=== PATIENT | male | born 1960 | race Caucasian/White ===

== ENCOUNTER 2017-12-10 06:33 | Inpatient (IN) | payer OTHER ==
[2017-11-29 09:36] LABS: ABSOLUTE EOSINOPHILS 0.2 thou/uL (0.0-0.7); ABSOLUTE LYMPHOCYTES 0.9 thou/uL (0.8-5.3); ABSOLUTE MONOCYTES 0.4 thou/uL (0.0-1.2); ABSOLUTE NEUTROPHILS 3.5 thou/uL (1.6-8.1); BASOPHILS 0.8 %; HEMOGLOBIN 15.1 gm/dL (14.0-18.0); LYMPHOCYTES 17.5 %; MCH 30.7 pg (26.0-34.0); MCHC 34.3 g/dL (28.0-37.0); MCV 89.6 fL (80.0-100.0); MONOCYTES 7.2 %; MPV 8.6 fl. (7.2-11.1); NUCLEATED RBCS 0 /100WBC; PLATELET COUNT* 144 thou/uL (150-400); POLYS 70.5 %; RBC 4.91 mil/uL (4.50-6.00); RDW-CV 13.9 % (10.5-14.5)
[2017-11-29 09:50] LABS: APTT 33.5 Seconds (25.0-31.3); INR 2.2; PROTIME 20.8 Seconds (9.20-11.50)
[2017-11-29 10:15] LABS: ALBUMIN 3.6 g/dL (3.4-5.0); CALCIUM 8.7 mg/dL (8.5-10.1); TOTAL BILIRUBIN 0.6 mg/dL (<0.1-1.0); TOTAL PROTEIN 6.4 g/dL (6.4-8.2)
[2017-11-29 10:19] LABS: POTASSIUM 2.9 mmol/L (3.5-5.1)
[2017-11-29 10:45] LABS: ESR (SEDRATE) 2 mm/hr (0-20)
--- NOTE | 2017-11-29 14:39 | NUR ---
RECEIVED CALL FROM [facility] AFTER DR. THOMPSON'S OFFICE CALLED TO DEFER TREATMENT TO DR. Sabine CHENEY ORDERING PHYSICIAN FOR K+--CRITICAL VALUE OF 2.9. LAB VALUES NOTING CRITICAL VALUE WAS FAXED TO DR Glynn CHENEY OFFICE AT 1250 TODAY. CALLED AT THIS TIME TO SPEAK WITH TRIAGE NURSE AT DR. Glynn CHENEY'S OFFICE TO NOTIFY OF CRITICAL VALUE RESULTS. SHE WILL ADDRESS WITH DR CHENEY.
[2017-11-30 02:07] LABS: GLYCOHEMOGLOBIN (HGB A1C) 7.5 % (4.8-5.6)
[~2017-12-10] VITALS: Ht 180.3 cm; Wt 122.0 kg
[~2017-12-10 06:33] MED LIST: ADULT LOW DOSE81 MG PO; AMLODIPINE-BEN1 EACH PO; ASPIRIN325; ASPIRIN325 PO; BAYER CHEWABLE81 MG PO; CALCIUM 600 +1 EAC1 PO; CATAPRESS3 TRANSDERM; COUMADIN 3 MG TA3 M1 PO; DOCUSATE SODIU100 MG PO; ENALAPRIL MALEAT5 M1 PO; FARXIGA10 MG PO; FISH OIL 1,0001 EAC5 PO; FISH OIL 1,2001 EAC3 PO; FUROSEMIDE 40 M40 M1 PO; GEMFIBROZIL 60600 MG PO; GLUCOPHAGE1000 MG PO; HYDRALAZINE 2525 M1 PO; HYDROCODONE-AP1 EAC6 PO; IRON325 PO; KLOR-CON 10 ER10 MEQ PO; LANTUSSOLASTAR SUBQ; LIPITOR 20 MG T20 M1 PO; LOPRESSOR 100 MG; LOPRESSOR100 MG PO; LYRICA 50 MG50 MG PO; MULTIVITAMINS1 EAC7 PO; NORCO 5-325 TA1 EACH; NORCO 5-325 TA1 EACH PO; NOVOLOG100 UNIT/1 SUBQ; POTASSIUM20 PO; PRAVACHOL80 MG PO; TEKTURNA300 MG PO; VITAMIN B COMP1 EACH PO; VITAMIN B-12100 MC1 PO; VITAMIN D1000 UNI1 PO; VITAMINC500 PO; XARELTO10 MG; [UNRECOGNIZED DRUG - OTHER] PO
[2017-12-10 12:21] LABS: INR 1.2; PROTIME 11.4 Seconds (9.20-11.50)
[2017-12-10 12:30] VITALS: BP 147/95
[2017-12-10 18:49] VITALS: BP 152/86
--- NOTE | 2017-12-10 18:58 | NUR ---
PATIENT ARRIVED TO UNIT AT 1825. ALERT AND ORIENTED X4. PAIN IS MANAGEABLE AT THIS TIME. RECIEVED IV NAUSEA MEDICATION AFTER ARRIVING TO UNIT. PATIENT HAS BEEN ORIENTED TO ROOM. IV IS PATENT AND INFUSING. CALL LIGHT IS WITHIN REACH. NURSING WILL CONTINUE TO MONITOR.
[2017-12-10 20:05] VITALS: BP 132/74
[2017-12-11 00:31] VITALS: BP 113/67
[2017-12-11 04:04] VITALS: BP 118/62
[2017-12-11 05:03] LABS: HEMATOCRIT 35.3 % (42.0-52.0); HEMOGLOBIN 12.7 gm/dL (14.0-18.0)
--- NOTE | 2017-12-11 05:21 | NUR ---
PATIENT ALERT AND ORIENTED. VITALS STABLE. ON 3L OF OXYGEN. FLUIDS INFUSING PER ORDER. PAIN CONTROLLED WITH PO MEDICATION. VOIDING PER URINAL. RIGHT HIP DRESSING C/D/I, ICEPACK IN PLACE. AT BEDSIDE. HOURLY ROUNDS. BED ALARM IN USE. NURSING WILL CONTINUE TO MONITOR.
[2017-12-11 09:00] VITALS: BP 122/62
[2017-12-11 09:16] LABS: INR 1.2; PROTIME 11.3 Seconds (9.20-11.50)
[2017-12-11 09:43] LABS: URINE BILIRUBIN NEGATIVE (Negative); URINE BLOOD NEGATIVE (Negative); URINE CLARITY CLEAR; URINE COLOR YELLOW; URINE GLUCOSE-RANDOM 3+ (Negative); URINE KETONES TRACE (Negative); URINE LEUKOCYTES-REFLEX NEGATIVE (Negative); URINE NITRITE-REFLEX NEGATIVE (Negative); URINE PROTEIN NEGATIVE (Negative); URINE SPECIFIC GRAVITY >= 1.030 (1.005-1.030); URINE UROBILINOGEN 0.2 E.U./dl (0.2-1.0)
[2017-12-11 16:10] VITALS: BP 128/67
--- NOTE | 2017-12-11 16:35 | NUR ---
PATIENT REMAINS ALERT AND ORIENTED. PAIN CONTROLLED WITH PO MEDS. DRESSING TO HIP DRY AND INTACT. ICE PACK IN PLACE. TEDS/SCD'S IN PLACE. WORKED WITH PT/OT. VOIDING PER TOILET. RA SAT 96%. TOLERATING MEALS. BED/CHAIR ALARM IN PLACE. CALL LIGHT WITHIN REACH. WILL CONTINUE TO MONITOR.
[2017-12-11 21:00] VITALS: BP 137/68
[2017-12-12] VITALS: BP 112/67
[2017-12-12 04:53] VITALS: BP 115/68
--- NOTE | 2017-12-12 05:22 | NUR ---
PATIENT ALERT AND ORIENTED. PAIN CONTROLLED WITH PO MEDICATION. UP WITH ASSIST X 2 TO BATHROOM. MOVES SLOW AND NEEDS NURSING ASSISTANCE TO HELP SCOOT LEG HE WALKS. PASSING FLATUS NO BOWEL MOVEMENT. HOURLY ROUNDS. UP IN RECLINER. CHAIR ALARM IN USE. NURSING WILL CONTINUE TO MONITOR.
[2017-12-12 06:56] LABS: HEMATOCRIT 35.6 % (42.0-52.0)
[2017-12-12 07:54] LABS: INR 1.1; PROTIME 10.7 Seconds (9.20-11.50)
[2017-12-12 08:34] VITALS: BP 128/68
--- NOTE | 2017-12-12 11:47 | NUR ---
SPOKE WITH PT.AND . PT.DROWSY,KEPT HIS EYES CLOSED. HE SAID HE WAS PLANNING ON GOING HOME TOMORROW. HE IS NORMALLY INDEPENDENT AT HOME. WORKS PACKAGING COORDINATOR. HAS A WALKER THAT IS IN ROOM. DID NOT HAVE TO USE PREOP. DISCUSSED HOME HEALTH VS OUTPT THERAPY. THEY WILL DECIDE TOMORROW. PT.WILL GO HOME ON LOVENOX/COUMADIN. PT.HAS BEEN SEEING IN OFFICE, BUT NOT RECENTLY. HE IS NOT SURE WHO WOULD MONITOR HIS COUMADIN. WILL DISCUSS WITH
[2017-12-12 16:08] VITALS: BP 122/62
--- NOTE | 2017-12-12 17:32 | NUR ---
ASSUMED CARE OF PATIENT AFTER MORNING REPORT. ALERT AND ORIENTED X4. ASSESSMENT COMPLETED AND CHARTED. VSS ON ROOM AIR. PATIENT HAS HAD NO COMPLAINTS OF NAUSEA THIS SHIFT. PAIN HAS BEEN MINIMAL AND MANAGED WT PAIN MEDICATION. PATIENT HAS WORKED WITH THERAPY TODAY AND IS PROGRESSING SLOWER THAN HE WOULD LIKE. HOURLY ROUNDS HAVE BEEN MAINTAINED. CALL LIGHT IS WITHIN REACH. NURSING WILL CONTINUE TO MONITOR.
[2017-12-12 20:50] VITALS: BP 137/69
[2017-12-13 00:18] VITALS: BP 113/69
[2017-12-13 04:00] VITALS: BP 133/69
--- NOTE | 2017-12-13 05:21 | NUR ---
PATIENT ALERT AND ORIENTED. VITALS STABLE. LOW GRADE FEVER OVERNIGHT. UP WITH ASSIST X 2 TO BATHROOM. PATIENT IS MOVING BETTER TODAY. RIGHT HIP CIRO DRESSING IN PLACE. HOURLY ROUNDS. CHAIR ALARM IN USE. NURSING WILL CONTINUE TO MONITOR.
[2017-12-13 07:55] VITALS: BP 136/69
[2017-12-13 11:15] LABS: INR 1.1; PROTIME 10.7 Seconds (9.20-11.50)
--- NOTE | 2017-12-13 12:59 | S ---
[address] [address] SURGICAL PATH RPT PROCEDURE Name: FRANK STANLEY Room: [address] IN ..#: [id number] Admission: 12/10/17 Date of : 62 Discharge: Report #: [id number] Path Case #: [id number] PATHOLOGY REPORT COLLECTION DATE: 12/11/2017 RECEIVED DATE: 12/11/2017 SUBMITTING PHYS: Dr. Jeremy Kahn OTHER PHYS: Dr. Usama Agarwal SPECIMEN(S) RECEIVED: A.Right hip bone and tissue * * * * * * * * * * * * FINAL DIAGNOSIS: Right hip bone and tissue: - Benign dense fibrous connective tissue and benign femoral head including hematopoietic elements with severe degenerative changes. (ROANL:db; 12/13/2017) PATHOLOGIST: Harvinder Alaniz M.D. REPORT ELECTRONICALLY SIGNED BY: Harvinder Alaniz M.D. DATE/TIME: 12/13/2017 12:59 * * * * * * * * * * * * GROSS PATHOLOGY: Received in formalin labeled "Frank Stanley, right hip bone and tissue," is a femoral head measuring 5.6 x 5.0 x 3.7 cm in greatest dimensions admixed with soft tissue. The articular surface is smooth to granular and pale jeter to dark brown in appearance, with no gross evidence of eburnation. Sectioning the bone reveals pale yellow and slightly hemorrhagic cut surfaces. It Support Engineer tissue is submitted in cassette A1, following decalcification. (DAC; 12/12/2017) CLINICAL HISTORY: Right hip degenerative joint disease INITIAL CPT CODE(S): A; 31074, 54886 Professional services performed by [facility] at [facility], [address] [place], [place] [address] [address]. Technical services performed by [facility] at [address] [place] [address], [facility] [address], [place] [address]. [place] [address] SURGICAL PATH RPT PROCEDURE Name: FRANK STANLEY Room: [address] IN [facility].#: [id number] Admission: 12/10/17 Date of : 62 Discharge: Report #: [id number] Path Case #: [id number] [facility] [address] [address] PHONE: [phone] DIRECTOR: Sumeet Davidson M.D. * * * END OF REPORT * * *
[2017-12-13 14:39] VITALS: BP 136/69
[2017-12-13 15:40] VITALS: BP 136/69
[2017-12-13] MEDS ORDERED: ENOXAPARIN30 MG/0.1 SUBQ (16:10)
--- NOTE | 2017-12-13 16:28 | NUR ---
PT.DOING WELL ENOUGH WITH P.T. TO BE DISCHARGED HOME TODAY. REFUSES TO MONITOR PT/INRS. LEFT MESSAGE FOR 'S (PCP)NURSE TO SEE IF HE WOULD MONITOR PT.'S INR. PER YENNIFER, WILL MONITOR INR/LOVENOX/COUMADIN. FAXED ORDER TO [facility]-[phone]. FAXED ALL ORDERS TO [facility]. THEY DO TAKE PT.'S INSURANCE. CALLED IN LOVENOX 30MG SYRINGES #14 TO PT.'S PHARMACY.
--- NOTE | 2017-12-13 17:58 | NUR ---
ASSUMED CARE OF PATIENT AFTER MORNING REPORT. ALERT AND ORIENTED X4. ASSESSMENT COMPLETED AND CHARTED. VSS ON ROOM AIR. PATIENT HAS HAD NO COMLAINTS OF NAUSEA THIS SHIFT. PAIN HAS BEEN MINIMAL AND MANAGED WITH PAIN MEDICATION. PATIENT WORKED WLL WITH THERAPY TODAY. PATIENTS CHEST PORT WAS FLUSHED WITH HEPARIN AND DEACCESSED. DICHARGED AT 1745 WITH HIS . ALL PERSONAL BELONGINGS SENT WITH PATIENT. DISCHARGE INSTRUCTIONS AND PRESCRIPTION SENT WITH PATIENT UPON DISCHARGE.
--- NOTE | 2017-12-17 09:23 | OP ---
[address] [address] OPERATIVE REPORT Name: FRANK BOWER Room: [address]#: [id number] Admission: 12/10/17 Attend Phys: Maxwell Hess Discharge: 12/13/17 Date of : 62 Report #: [id number] THIS REPORT FOR: //name// CC: Uriel Tsang DICTATED BY: Roberto Carlos Moser DO PREOPERATIVE DIAGNOSIS: Advanced degenerative joint disease, right hip. POSTOPERATIVE DIAGNOSIS: Advanced degenerative joint disease, right hip. SURGEON: Jeremy Kahn DO CAN WORKER: Roberto Carlos Moser DO OPERATION PERFORMED: Right total hip arthroplasty. ANESTHESIA: General with local capsular block. ESTIMATED BLOOD LOSS: 300 mL SPECIMENS: None. COMPLICATIONS: None. ANTIBIOTICS: Vancomycin preoperatively as well as 2 grams used intraoperatively. INDICATIONS FOR PROCEDURE: The patient is a 57-year-old male that has been seen multiple times in our clinic regarding his right hip pain. Unfortunately, he is no longer responding to conservative treatment including activity modification, weight loss, anti-inflammatories and therapy. His pain is significantly affecting his quality of life and ability to perform ADLs. He presents today for right total hip arthroplasty. Risks, benefits, complications and alternatives of surgery have been reviewed discussed with him and he is wishing to proceed. DESCRIPTION OF PROCEDURE: The patient was taken to the OR suite, placed supine on OR table, was given the benefit of general anesthetic. He was then prepped and draped in the usual sterile fashion. Prior to the procedure, a time-out was taken confirming correct site, patient and procedure. The procedure began making an anterolateral incision over the right hip and tensor fascia mallory muscle, was approximately 2 cm distal and lateral to the ASIS. Dissection was carried down through skin and subcutaneous tissues to the level of the tensor fascia. This was incised longitudinally. [place] [address] OPERATIVE REPORT Name: FRANK BOWER Room: [address]#: [id number] Admission: 12/10/17 Attend Phys: Maxwell Hess Discharge: 12/13/17 Date of : 62 Report #: [id number] muscle and the sartorius was developed. Dissection was carried down to the level of the deep fascia where the circumflex vessels were encountered. These were cauterized with Aquamantys. The hip capsule was exposed and appropriate retractors were placed. A partial capsulotomy was performed exposing the hip joint. There was a significant amount of osteophytes on the femoral head and neck as well as diffuse to advanced arthritic changes with chondral loss on the head of the femur. A neck cut was then performed referencing the lesser trochanter. This was approximately 1 fingerbreadth above the lesser for a neck cut. Oscillating saw was used to perform this. Femoral head and neck were then removed. Excess osteophytes and remaining labrum was removed around the acetabulum. Reaming was done sequentially up to a size 55. This was done utilizing a C-arm to confirm alignment and positioning of our acetabulum. The acetabulum was thoroughly irrigated and our final cup was placed as well as 2 screws within the acetabulum. Positioning and version was checked once again on C-arm. We then placed our trial liner with the high wall facing anterior and superior. We then directed our attention to the femur. The leg was brought into maximal external rotation to allow the femoral neck to clear the acetabulum. The leg was then extended to the floor and abducted. This allowed us to expose our femoral canal. Box osteotome and rattail rasp were used to access the femoral canal. We then sequentially broached up to a size 15 stem. This was trialled initially with a -3 neck and a size 40 head. C-arm was brought in to check our alignment. Stem was in appropriate position and a good fit. We were slightly short with the -3 neck; therefore, we elected for a standard final. Femoral stem was removed from the canal and the wound was once again thoroughly irrigated. We placed a vancomycin powder. The final stem was placed within the canal and well seated. A standard length, 40 mm head was then placed and this was reduced. C-arm was brought in for final images. Wound was again thoroughly irrigated. Topical TXA was utilized. Local capsular block was performed. The tensor fascia was reapproximated with a Quill suture, 2-0 Monocryl for subcutaneous tissues with a running 3-0 Stratafix. Sterile dressings were applied. The patient tolerated procedure well. All sponge, needle counts were correct x 2. IMPLANTS: Biomet G7 thinned acetabular shell size 56, a G7 high wall E1 acetabular liner, a Biolox delta hip system, ceramic head size 40, a 15 mm high offset Taperloc complete femoral stem with a standard neck, 2 G7 acetabular screws, one 25 mm, one 30 in length. <ELECTRONICALLY SIGNED> By: Jeremy Kahn DO 12/17/17 0923 1745 1857Robmegan Kahn DO /nt
== END 2017-12-13 17:45 | disposition home health service (06) | DRG 470 ==
LOC: M.PRE 06:33 → M.TBA 11:48 → M.ORTHSURG 11:48 → M.PRE 12:41 → M.ORTHSURG 18:18 → M.PRE 10-10 14:49
PROVIDERS: Internal Medicine; Orthopaedic Surgery; ADMIT Internal Medicine
PROC: 0SR903Z Replacement of Right Hip Joint with Ceramic Synthetic Substitute, Open Approach (ICD-10-PCS; principal; 2017-12-10)
DX: M16.11 Unilateral primary osteoarthritis, right hip (principal); D68.59 Other primary thrombophilia; Z96.652 Presence of left artificial knee joint; I10 Essential (primary) hypertension; E78.5 Hyperlipidemia, unspecified; T45.515A Adverse effect of anticoagulants, initial encounter; E11.9 Type 2 diabetes mellitus without complications; Z85.05 Personal history of malignant neoplasm of liver; Z80.1 Family history of malignant neoplasm of trachea, bronchus and lung; Z80.3 Family history of malignant neoplasm of breast; Z85.038 Personal history of other malignant neoplasm of large intestine; Z86.711 Personal history of pulmonary embolism; Z79.4 Long term (current) use of insulin; Z79.899 Other long term (current) drug therapy

== ENCOUNTER → 2018-05-23 | Outpatient (CLI) | payer OTHER ==
[~2018-05-23] MED LIST changes: +AMLODIPINE BESY10 MG PO; +ENOXAPARIN30 MG/0.1 SUBQ; +XULTOPHY 100 UNI3 ML
--- NOTE | 2018-09-20 09:08 | PATH ---
[address] [address] PATHOLOGY RPT PROCEDURE Name: FRANK BOWER Laurie Room: [facility]#: [id number] Admission: 05/23/18 Date of : 62 Discharge: Report #: [id number] Path Case #: [id number] Note [facility] Accession Number: [id number] TESTS RESULT FLAG UNITS REF RANGE LAB Clinician Provided Cytology Information No. of containers..01 Other (Miscellaneous) Source: [A] 01 LG PAROTID NECK MASS DIAGNOSIS: [A] 02 LG PAROTID NECK MASS POSITIVE FOR MALIGNANT CELLS. POORLY DIFFERENTIATED NON SMALL CELL CARCINOMA, FAVOR SQUAMOUS CELL CARCINOMA. THIS INTERPRETATION INCLUDES EVALUATION OF A CELL BLOCK. Signed out by: 02 Kofi Godinez MD, Pathologist NPI- [id number] Performed by: 01 Brodie Dickerson, Grey Roll Worker ([facility]) Gross description: 01 20 ML, RED, CLEAR /LCS FLAG LEGEND: L-Low Normal,H-High Normal,LL-Alert Low,HH-Alert High <-Panic Low,>-Panic High,A-Abnormal,AA-Critical Abnormal Performed at: [address] [address] Frank Ruggiero MD, [address] [place] [id number] Sumeet Davidson MD, Specimen Comment: A duplicate report has been generated due to demographic updates. Performed at: [address] [address], [place], [place] [id number] MD Frank Ruggiero MD Phone: [phone]
--- NOTE | 2018-09-20 09:08 | PATH ---
[address] [address] PATHOLOGY RPT PROCEDURE Name: FRANK BOWER Room: [facility]#: [id number] Admission: 05/23/18 Date of : 62 Discharge: Report #: [id number] Path Case #: [id number] Note [facility] Accession Number: [id number] TESTS RESULT FLAG UNITS REF RANGE LAB Clinician Provided Cytology Information No. of containers..01 Other (Miscellaneous) Source: [A] 01 SM LT PAROTID MASS DIAGNOSIS: [A] 02 SM LT PAROTID MASS POSITIVE FOR MALIGNANT CELLS. POORLY DIFFERENTIATED CARCINOMA, FAVOR SQUAMOUS CELL CARCINOMA. THIS INTERPRETATION INCLUDES EVALUATION OF A CELL BLOCK. THE FINDINGS OF THIS CASE AND CASE [id number] CROOKS ON 05/24/18. Signed out by: 02 Kofi Godinez MD, Pathologist NPI- [id number] Performed by: 01 Brodie Dickerson, Director Of Retail ([facility]) Gross description: 01 30 ML, CLEAR, COLORLESS /LCS FLAG LEGEND: L-Low Normal,H-High Normal,LL-Alert Low,HH-Alert High <-Panic Low,>-Panic High,A-Abnormal,AA-Critical Abnormal Performed at: [address] [address] Frank Ruggiero MD, [address] [place] [id number] Sumeet Davidson MD, Specimen Comment: A duplicate report has been generated due to demographic updates. Performed at: [address] [place] [id number] MD Frank Ruggiero MD Phone: [phone]
== END | disposition home or self-care (01) ==
LOC: M.ULTRA 07:51
DX: C08.9 Malignant neoplasm of major salivary gland, unspecified (principal); Z79.82 Long term (current) use of aspirin; Z79.899 Other long term (current) drug therapy

== ENCOUNTER 2018-08-22 22:14 | Observation (INO) | payer OTHER ==
[~2018-08-22] VITALS: Ht 180.3 cm; Wt 98.0 kg
[~2018-08-22 22:14] MED LIST changes: -AMLODIPINE BESY10 MG PO; -XULTOPHY 100 UNI3 ML
[2018-08-22 22:34] VITALS: BP 133/88
[2018-08-22] MEDS ORDERED: AMLODIPINE BESY10 MG PO (22:40)
[2018-08-22] MEDS ORDERED: XULTOPHY 100 UNI3 ML (22:41)
[2018-08-22 22:47] LABS: HEMATOCRIT 42.9 % (42.0-52.0); HEMOGLOBIN 14.7 gm/dL (14.0-18.0); MCH 30.1 pg (26.0-34.0); MCHC 34.3 g/dL (28.0-37.0); MCV 87.9 fL (80.0-100.0); MPV 7.9 fl. (7.2-11.1); NUCLEATED RBCS 0 /100WBC; PLATELET COUNT* 148 thou/uL (150-400); RBC 4.88 mil/uL (4.50-6.00); RDW-CV 14.4 % (10.5-14.5)
[2018-08-22 22:56] LABS: CALCIUM 9.1 mg/dL (8.5-10.1); POTASSIUM 3.6 mmol/L (3.5-5.1)
[2018-08-22 22:59] LABS: URINE CLARITY TURBID; URINE COLOR RED
[2018-08-22 23:00] LABS: ALBUMIN 3.5 g/dL (3.4-5.0); TOTAL BILIRUBIN 0.7 mg/dL (<0.1-1.0); TOTAL PROTEIN 6.6 g/dL (6.4-8.2)
[2018-08-22 23:01] LABS: APTT 73.4 Seconds (25.0-31.3); PROTIME 77.5 Seconds (9.20-11.50)
[2018-08-22 23:04] LABS: URINE GLUCOSE-RANDOM ND (Negative); URINE PROTEIN ND (Negative); URINE REDUCING SUBSTANCE >= 2 % (Negative); URINE SPECIFIC GRAVITY ND (1.005-1.030)
[2018-08-22 23:05] LABS: ACETEST (KETONE CONFIRMATORY) Negative (Negative); ICTOTEST (BILI CONFIRMATORY) Negative (Negative); URINE BILIRUBIN ND (Negative); URINE BLOOD ND (Negative); URINE KETONES ND (Negative); URINE LEUKOCYTES-REFLEX ND (Negative); URINE NITRITE-REFLEX ND (Negative); URINE UROBILINOGEN ND E.U./dl (0.2-1.0)
[2018-08-22 23:07] LABS: CASTS None Seen /LPF (None Seen); CRYSTALS None Seen /LPF (None Seen); MUCUS 0-3 Light strn/LPF (None Seen); SQUAMOUS 0-3 Few /LPF (0-3); URINE RBC >20 Many /HPF (0-2); URINE WBC-REFLEX None Seen /HPF (0-5)
[2018-08-22 23:09] LABS: INR 7.7
[2018-08-23 00:22] VITALS: BP 133/88
[2018-08-23 02:07] VITALS: BP 123/69; BP 125/69
[2018-08-23 02:21] LABS: ABSOLUTE EOSINOPHILS 0.2 thou/uL (0.0-0.7); ABSOLUTE LYMPHOCYTES 0.8 thou/uL (0.8-5.3); ABSOLUTE MONOCYTES 0.8 thou/uL (0.0-1.2); ABSOLUTE NEUTROPHILS 4.2 thou/uL (1.6-8.1); ANISOCYTOSIS Occasional; PLATELET ESTIMATE DECREASED
[2018-08-23 02:22] LABS: TOXIC GRANULATION 1+
[2018-08-23 04:12] VITALS: BP 125/69
[2018-08-23 06:08] LABS: PROTIME 39.8 Seconds (9.20-11.50)
[2018-08-23 06:09] LABS: INR 3.9
[2018-08-23 09:54] VITALS: BP 129/75
[2018-08-23 11:46] VITALS: BP 129/75
== END 2018-08-23 12:05 | disposition home or self-care (01) ==
LOC: M.ERS 22:14 → M.TBA-ER 23:54 → M.ORTHSURG 23:54
PROVIDERS: Personal Emergency Response Attendant; ADMIT Internal Medicine
DX: R31.0 Gross hematuria (principal); D68.59 Other primary thrombophilia; R79.1 Abnormal coagulation profile; I10 Essential (primary) hypertension; E11.9 Type 2 diabetes mellitus without complications; C79.89 Secondary malignant neoplasm of other specified sites; Z87.891 Personal history of nicotine dependence; Z98.890 Other specified postprocedural states; Z85.038 Personal history of other malignant neoplasm of large intestine; Z85.05 Personal history of malignant neoplasm of liver; Z90.49 Acquired absence of other specified parts of digestive tract; Z72.89 Other problems related to lifestyle; Z85.828 Personal history of other malignant neoplasm of skin; Z79.4 Long term (current) use of insulin; Z79.82 Long term (current) use of aspirin; Z79.899 Other long term (current) drug therapy; Z79.01 Long term (current) use of anticoagulants

== ENCOUNTER → 2019-06-25 | Outpatient (CLI) | payer OTHER ==
[~2019-06-25] MED LIST changes: +AMLODIPINE BESY10 MG PO; +XULTOPHY 100 UNI3 ML
== END ==
LOC: M.MRI 06-13 16:10
DX: M17.11 Unilateral primary osteoarthritis, right knee (principal); M25.462 Effusion, left knee; M25.461 Effusion, right knee; M89.9 Disorder of bone, unspecified; Z96.641 Presence of right artificial hip joint

== ENCOUNTER 2019-10-02 05:48 | Inpatient (IN) | payer OTHER ==
[2019-09-11 09:10] LABS: HEMOGLOBIN 15.2 gm/dL (14.0-18.0)
[2019-09-11 09:12] LABS: ABSOLUTE EOSINOPHILS 0.1 thou/uL (0.0-0.7); ABSOLUTE LYMPHOCYTES 0.6 thou/uL (0.8-5.3); ABSOLUTE MONOCYTES 0.3 thou/uL (0.0-1.2); BASOPHILS 0.9 %; EOSINOPHILS 3.1 %; HEMATOCRIT 43.3 % (42.0-52.0); LYMPHOCYTES 14.8 %; MCH 31.7 pg (26.0-34.0); MCHC 35.2 g/dL (28.0-37.0); MCV 90.3 fL (80.0-100.0); MONOCYTES 6.9 %; MPV 7.7 fl. (7.2-11.1); NUCLEATED RBCS 0 /100WBC; PLATELET COUNT* 142 thou/uL (150-400); POLYS 74.3 %; RDW-CV 13.7 % (10.5-14.5)
[2019-09-11 09:23] LABS: APTT 38.7 Seconds (25.0-31.3); INR 3.2; PROTIME 31.2 Seconds (9.20-11.50)
[2019-09-11 09:31] LABS: ALBUMIN 3.7 g/dL (3.4-5.0); CALCIUM 9.2 mg/dL (8.5-10.1); CREATININE 1.1 mg/dL (0.6-1.3); POTASSIUM 3.4 mmol/L (3.5-5.1); TOTAL BILIRUBIN 0.4 mg/dL (<0.1-1.0); TOTAL PROTEIN 6.7 g/dL (6.4-8.2)
[2019-09-11 10:48] LABS: ESR (SEDRATE) 6 mm/hr (0-20)
--- NOTE | 2019-09-11 16:59 | EKG ---
[place] [address] ELECTROCARDIOGRAM REPORT Name: FRANK BOWER Room: PRE IN [facility]#: [id number] Admission: Attend Phys: Maxwell Hess Discharge: Date of : 62 Report #: [id number] THIS REPORT FOR: //name// [facility] Test Date: 2019-09-11 Test Time: 09:31:29 Pat Name: FRANK BOWER Department: Room: Gender: M Material Preparation Worker: : 1960 Requested By: Jeremy Kahn Order Number: [id number] Reading MD: Benson East Measurements Intervals [place] Rate: 82 P: 30 ID: 167 QRS: 17 QRSD: 103 T: 4 QT: 349 QTc: 408 Interpretive Statements Sinus rhythm Compared to ECG 08/18/2014 11:36:44 Myocardial infarct finding no longer present Electronically Signed On 09-11-2019 16:59:13 CDT by Benson East [email or web address] <ELECTRONICALLY SIGNED> By: Benson East MD, [facility] 09/11/19 1659 0931 0931 Benson East MD, FACC /EPI
[2019-09-11 23:06] LABS: GLYCOHEMOGLOBIN (HGB A1C) 6.9 % (4.8-5.6)
[~2019-10-02] VITALS: Ht 180.3 cm; Wt 112.5 kg
--- NOTE | ~2019-10-02 | OP ---
[facility] [address] [place] [address] OPERATIVE REPORT Name: FRANK BOWER Room: [address] IN .R.#: [id number] Admission: 10/02/19 Attend Phys: Maxwell eHss Discharge: 10/03/19 Date of : 62 Report #: [id number] THIS REPORT FOR: //name// CC: Jeremy Tsang DICTATED BY: Collin Bowers DO DATE OF SERVICE: 10/02/2019 PREOPERATIVE DIAGNOSIS: Advanced degenerative joint disease, left hip. POSTOPERATIVE DIAGNOSIS: Advanced degenerative joint disease, left hip. PROCEDURES PERFORMED: Left total hip arthroplasty using the Biomet system with the following components. 1. A 56 mm G7 finned acetabular shell. 2. A 40 mm G7 high wall acetabular liner. 3. A 6.5 self-tapping bone screw lengths 25 and 30. 4. A size 15 Taperloc microplasty stem with high offset. 5. A size 40 mm ceramic head. 6. A +3 mm taper adaptor neck. SURGEON: Jeremy Kahn DO SAUSAGE STUFFER: Collin Bowers DO ANESTHESIA: General with local. ESTIMATED BLOOD LOSS: 300 mL. SPECIMENS: None. COMPLICATIONS: None. DISPOSITION: Stable to PACU. ANTIBIOTICS: 2 grams of IV Ancef given preoperatively. INDICATIONS: The patient is a 59-year-old male who we follow up in the clinic for quite some time regarding left hip pain. Exam findings and radiographs are consistent with DJD. He has a history of right total hip, which he did very well with. He continues to have pain on the left that affects him on a daily basis. It is interfering with his ADLs. Therefore, a total hip arthroplasty was discussed. He agrees to proceed and understands the risks, benefits and [address] [address] OPERATIVE REPORT Name: FRANK BOWER Room: [address]#: [id number] Admission: 10/02/19 Attend Phys: Maxwell Hess Discharge: 10/03/19 Date of : 62 Report #: [id number] alternatives. DESCRIPTION OF PROCEDURE: The patient was seen in the preoperative area and signed written consent. The operative site was marked. He was brought back to the operative suite and placed supine on the [place] table. He was given the benefit of general anesthesia. Both legs were well padded and placed in the boot and into the spars. The left lower extremity was prepped and draped in normal sterile fashion. A surgical timeout was performed where the correct side, site and procedure were verified. Also, note that the perineal post was well padded. A surgical timeout was performed where the correct side, site, and procedure were verified. Everyone present was in agreement. The standard incision was made for the anterior approach measuring approximately 1 cm inferior and lateral to the ASIS. Sharp dissection was taken through the skin. Then, Bovie dissection was taken down to the level of the tensor fascia. A new knife was used to make an incision through this and the remainder was incised with scissor. We then identified the interval between the tensor and the sartorius. The branches of the circumflex were identified and coagulated using Aquamantys and the Bovie electrocautery. We identified the capsular tissue. The #7 retractor was placed in the superior neck, the #6 retractor placed inferiorly. A Pruett was used to create a plane superficial to the capsular tissue anteriorly and a #9 retractor was placed. An anterior capsulectomy was performed. He had a normal appearing joint effusion with eburnation of bone and osteophyte formation noted. The superior release was performed in order to identify the capsule. The femoral neck was cut approximately 1 cm proximal to the lesser trochanter. A napkin ring cut was made at the base of the head. The bone was removed. Then, the Bovie was used to remove the remaining capsular tissue as well as the labral tissue. We began reaming at a 53 and sequentially reamed and then reamed to a 55. This was done under fluoroscopy to ensure appropriate position and depth. We then impacted a 56 mm acetabular shell into place, which was again done under fluoroscopy to ensure appropriate inclination and anteversion. The appropriate holes were drilled ensuring to remain in the posterior superior quadrant and a 25 and 30 mm screws were inserted. The acetabular shell was thoroughly irrigated. The high wall liner was inserted with the high wall in the superior position. We then turned our attention to the femur. The 5 and 8 retractors were placed in the appropriate position. An inferior capsular release was performed. We then dropped the leg into extension and adduction. A posterior capsular release was performed until we had adequate visualization to prepare the femoral canal. We began with a box osteotome and then used the Rat tail rasp to localize the canal. We sequentially broached beginning at a 4 and up to a size 15, which had good fit. We used a standard neck with a high offset and the hip was reduced. X-rays were obtained. The stem appeared to be the appropriate size. The leg length was slightly short. We therefore dislocated the hip and trialed a +3 neck. This gave us the appropriate leg length. The hip was taken through a range of motion and found to be stable in all planes. The hip was dislocated, extended and adducted. The trial components were removed. The final components were opened. The final [address] [address] OPERATIVE REPORT Name: FRANK BOWER FRANCO Room: [address] IN [facility].#: [id number] Admission: 10/02/19 Attend Phys: Maxwell Hess Discharge: 10/03/19 Date of : 62 Report #: [id number] femoral stem was opened and impacted into place. This was noted to be sitting in the same position as the trial. We therefore then decided to impact the +3 neck with a 40 mm ceramic head. After the final components were impacted, the hip was reduced. Final x-rays were obtained showing appropriate positioning and length. The tissue was thoroughly irrigated. The orthopedic cocktail was injected around the capsular tissue. The tensor fascia was closed with a #1 running Stratafix. The wound was again thoroughly irrigated. The subcutaneous tissue was closed with a 2-0 Monocryl and reinforced with a 3-0 Stratafix and Exofin skin glue. A sterile Mepilex was applied. The patient was awoken from anesthesia and transferred to PACU in stable condition. There were no obvious complications. Needle and sponge counts were correct x 2. Dr. Kahn was present for all critical aspects of the case. By: 1637 1951Robert Migel Kahn DO /rosalinda
[~2019-10-02 05:48] MED LIST changes: +ASA81BEC PO; +HUMALOG100 UNIT/1 SUBQ; +TOPROL XL100 MG PO; -XULTOPHY 100 UNI3 ML; +XULTOPHY 100 UNI3 ML SUBQ
[2019-10-02] MEDS ORDERED: NORVASC10 MG PO (06:34)
[2019-10-02] MEDS ORDERED: COUMADIN 5 MG TA5 M1 PO (06:36)
[2019-10-02] MEDS ORDERED: JARDIANCE10 MG PO (06:37)
[2019-10-02] MEDS ORDERED: HUMALOG100 UNIT/1 SUBQ (06:37)
[2019-10-02] MEDS ORDERED: SOLIQUA 100 UNIT3 ML SUBQ (06:38)
[2019-10-02 06:47] LABS: INR 1.1
[2019-10-02 07:22] VITALS: BP 133/75
[2019-10-02 20:40] VITALS: BP 122/69
[2019-10-02 22:52] VITALS: BP 119/68
[2019-10-03 03:58] VITALS: BP 116/63
[2019-10-03 04:26] LABS: HEMATOCRIT 34.5 % (42.0-52.0); HEMOGLOBIN 11.9 gm/dL (14.0-18.0)
[2019-10-03 10:01] VITALS: BP 116/63
[2019-10-03 11:48] LABS: INR 1.2; PROTIME 11.9 Seconds (9.20-11.50)
[2019-10-03 13:56] VITALS: BP 116/63
[2019-10-03] MEDS ORDERED: ROXICODONE5 M2 PO (14:18)
[2019-10-03] MEDS ORDERED: TRAMADOL 50 MG50 MG PO (14:19)
[2019-10-03] MEDS ORDERED: LOVENOX40 MG/0.4 SUBQ (15:08)
== END 2019-10-03 15:34 | disposition home health service (06) | DRG 470 ==
LOC: M.PRE 05:48 → M.TBA 06:03 → M.PRE 09:37 → M.ORTHSURG 12:33
PROVIDERS: Internal Medicine; Orthopaedic Surgery; ADMIT Internal Medicine
PROC: 0SRB03Z Replacement of Left Hip Joint with Ceramic Synthetic Substitute, Open Approach (ICD-10-PCS; principal; 2019-10-02)
DX: M16.12 Unilateral primary osteoarthritis, left hip (principal); C78.7 Secondary malignant neoplasm of liver and intrahepatic bile duct; I10 Essential (primary) hypertension; E11.9 Type 2 diabetes mellitus without complications; Z96.652 Presence of left artificial knee joint; Z96.641 Presence of right artificial hip joint; E66.9 Obesity, unspecified; G47.33 Obstructive sleep apnea (adult) (pediatric); Z85.038 Personal history of other malignant neoplasm of large intestine; Z79.899 Other long term (current) drug therapy; Z79.82 Long term (current) use of aspirin; Z79.4 Long term (current) use of insulin; Z85.828 Personal history of other malignant neoplasm of skin; Z86.711 Personal history of pulmonary embolism; Z80.1 Family history of malignant neoplasm of trachea, bronchus and lung; Z80.3 Family history of malignant neoplasm of breast; Z87.891 Personal history of nicotine dependence; Z68.34 Body mass index [BMI] 34.0-34.9, adult

== ENCOUNTER 2019-10-12 21:40 | Inpatient (IN) | payer OTHER ==
[~2019-10-12] VITALS: Ht 180.3 cm; Wt 127.9 kg
[~2019-10-12 21:40] MED LIST changes: +COUMADIN 5 MG TA5 M1 PO; +JARDIANCE10 MG PO; +LOVENOX40 MG/0.4 SUBQ; +NORVASC10 MG PO; +ROXICODONE5 M2 PO; +SOLIQUA 100 UNIT3 ML SUBQ; +TRAMADOL 50 MG50 MG PO
[2019-10-12 21:50] VITALS: BP 140/62
[2019-10-12 22:52] LABS: HEMATOCRIT 32.7 % (42.0-52.0); HEMOGLOBIN 11.5 gm/dL (14.0-18.0); MCH 31.1 pg (26.0-34.0); MCHC 35.2 g/dL (28.0-37.0); MCV 88.4 fL (80.0-100.0); MPV 7.2 fl. (7.2-11.1); NUCLEATED RBCS 0 /100WBC; PLATELET COUNT* 303 thou/uL (150-400); RBC 3.69 mil/uL (4.50-6.00); RDW-CV 13.7 % (10.5-14.5); WBC 9.8 thou/uL (4.0-11.0)
[2019-10-12 23:02] LABS: POTASSIUM 3.8 mmol/L (3.5-5.1)
[2019-10-12 23:06] LABS: APTT 47.1 Seconds (25.0-31.3); INR 2.5; PROTIME 24.6 Seconds (9.20-11.50)
[2019-10-12 23:12] LABS: ALBUMIN 2.7 g/dL (3.4-5.0); TOTAL BILIRUBIN 0.8 mg/dL (<0.1-1.0)
[2019-10-13 00:38] LABS: ABSOLUTE LYMPHOCYTES 0.2 thou/uL (0.8-5.3); ABSOLUTE MONOCYTES 0.6 thou/uL (0.0-1.2); PLATELET ESTIMATE ADEQUATE
[2019-10-13 01:42] VITALS: BP 142/68
[2019-10-13 02:00] VITALS: BP 127/68
--- NOTE | 2019-10-13 03:01 | NUR ---
RECEIVED REPORT AND ASSUMED CARE. PT TRANSPORTED FROM ED TO ROOM 223. PT REPORTS PAIN. PRN MEDICATION PER ORDERS. ASSESSMENT COMPLETED CHARTED. DISCUSSED PLAN OF CARE WITH PT, VERBALIZED UNDERSTANDING. NPO/ ORTHO CONSULT. ORIENTATED TO ROOM, CALL LIGHT, FALL POLICY. ALL QUESTIONS ANSWERED AT THIS TIME. ADMISSION COMPLETED BY NURSING. PT USES WALKER FOR AMBULATION AT HOME. ON RA. BED LOCKED IN LOWEST POSITION, CALL LIGHT WITHIN REACH, BED ALARM ON.
[2019-10-13 08:00] VITALS: BP 138/79
--- NOTE | 2019-10-13 10:26 | NUR ---
ASSUMED CARE OF PATIENT THIS AM AT 0730. PATIENT IS ALERT AND ORIENTED X 4. HE C/O PAIN IN HIS LEFT THIGH. LEFT THIGH IS SWOLLEN,TIGHT,AND WARM. PATIENT KEPT NPO FOR POSSIBLE INTERVENTION. PATIENT MEDICATED FOR PAIN X 1 IV. PATIENT TAKEN DOWN TO RADIOLOGY FOR TESTS.
[2019-10-13 12:00] LABS: HEMATOCRIT 29.5 % (42.0-52.0); HEMOGLOBIN 10.5 gm/dL (14.0-18.0)
[2019-10-13 12:04] LABS: CALCIUM 8.4 mg/dL (8.5-10.1); CREATININE 0.9 mg/dL (0.6-1.3); POTASSIUM 4.1 mmol/L (3.5-5.1)
--- NOTE | 2019-10-13 13:14 | EKG ---
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[place] : 1960 Requested By: Jeremy Escalera Order Number: [id number] MD: Andrea Rodriguez Measurements Intervals [place] Rate: 105 P: 32 ME: 144 QRS: 31 QRSD: 100 T: 3 QT: 355 QTc: 470 Interpretive Statements Sinus tachycardia Atrial premature complexes Baseline wander in lead(s) V6 Compared to ECG 09/11/2019 09:31:29 Atrial premature complex(es) now present Sinus rhythm no longer present Electronically Signed On 10-13-2019 13:14:00 MACHINE ROUGH ROUNDER by Andrea Rodriguez [email or web address] <ELECTRONICALLY SIGNED> By: Andrea Rodriguez MD, FACC 10/13/19 1314 18 Andrea Rodriguez MD, [facility] /EPI
--- NOTE | 2019-10-13 15:23 | NUR ---
Pt is A&O. Resides at home with . Independent prior to hip surgery on 10/02. Pt has a walker that he can use for mobility. No hx of SNF. Following.
[2019-10-13 17:41] VITALS: BP 117/59
[2019-10-13 20:00] VITALS: BP 108/62
--- NOTE | 2019-10-13 22:44 | NUR ---
INITAL ASSESMENT COMPLETED AT 1999. PT PLEASANT AND COOPERATIVE. PT REPORTED TIGHTNESS IN LEFT LEG. PRN TRAMADOL GIVEN WITH GOOD RESULTS. PT'S ACCU CHECK 72. PT GIVEN BOX LUNCH TO EAT. BLOOD SUGAR RECHECKED, RESULT WITHIN NORMAL LIMITS. HS LANTUS NOT GIVEN PER PT'S REQUEST.
[2019-10-14] VITALS: BP 108/55
[2019-10-14 07:45] VITALS: BP 107/65
[2019-10-14 11:46] VITALS: BP 97/57
--- NOTE | 2019-10-14 13:34 | NUR ---
DISCUSSED WITH DR GOLDEN, ANTICIPATE DC TOMORROW WITH HH. PT IS CURRENT WITH [facility]. CALLED AND FAXED INITIAL REFERRAL. WAS ALSO ASKED TO ASSIST WITH GETTING PT A HOME INR MACHINE. HE STATES HIS PCP MANAGES HIS INR. CALL TO [facility], THEY WILL FAX FORM FOR TO SIGN AND WILL SEND TO INSURANCE FOR AUTH, MAY TAKE UP TO A WEEK TO GET. PT MADE AWARE. HH TO CHECK INR IN THE MEANTIME. WILL FOLLOW
[2019-10-14 13:37] VITALS: BP 97/57
--- NOTE | 2019-10-14 14:08 | NUR ---
ASSUSSMED CARE OF PT APPROX 0730. REASSESSMENT COMPLETED CHARTED. MEDICATIONS GIVEN CHARTED. PT HAD A SHOWER THIS AM AFTER BREAKFAST. PT HAD COMPLAINT OF PAIN, MEDICATION WAS GIVEN. PT WORKED WITH THERAPY THIS MORNING. HOURLY ROUNDING FOR PT SAFTEY. PT USES CALL LIGHT FOR NEEDS. WILL CONTINUE TO MONINTOR.
--- NOTE | 2019-10-14 17:48 | NUR ---
PT HAD A SHOWER THIS AM, DRESSING ON LEFT HIP CHANGED AFTER SHOWER WAS COMPLETED.
[2019-10-14 20:00] VITALS: BP 109/68
[2019-10-15 04:00] VITALS: BP 102/63
[2019-10-15 05:28] LABS: HEMATOCRIT 24.7 % (42.0-52.0); HEMOGLOBIN 8.7 gm/dL (14.0-18.0)
[2019-10-15 05:33] LABS: INR 2.5; PROTIME 24.4 Seconds (9.20-11.50)
[2019-10-15 07:45] VITALS: BP 115/63
--- NOTE | 2019-10-15 07:57 | NUR ---
PT A+O X4. USES CALL LIGHT APPROPRIATELY. UP WITH WALKER. ABLE TO AMBULATE BUT DIFFICULTY PICKING LEG UP TO PUT INTO BED. NORCO GIVEN X 2 FOR PAIN. @ BEDSIDE THROUGH THE NIGHT. CALL LIGHT IN REACH. HOURLOY ROUNDING FOR SAFETY.
--- NOTE | 2019-10-15 08:23 | NUR ---
ASSUMED CARE OF PT THIS AM AROUND 714- MS STATUS IN PLACE AND MAINTAINED- UPON ASSESSMENT PT NOTED TO BE RESTING IN BED, EYES CLOSED WITH AT SIDE- PT ARROUSABLE AND A&O X4-CONTINENT OF B/B- SBA WITH RW FOR TRANSFERS- LCTA, RESP EVEN AND UN-LABORED- VSS, O2 SAT 95% ON RA- ABD SOFT/ROUND/NON-TENDER, BS X4 QUADS- LAST BM REPORTED 10/14/19-BS MONITORED ORDERED WITH SSI PRESCIBED- RIGHT CHEST PORT CATH NOTED C/D/I, SL- +1 BLE EDEMA NOTED- DRESSING TO LEFT UPPER HIP C/D/I- LINETTE HOSE IN PLACE INDICATED- PT STATES PAIN 2/10 TO LEFT HIP THIS AM- CALL LIGHT AND PERSONAL BELONGINGS WITH IN REACH- PT MAKES NEEDS KNOWN- ALL NEEDS MET AT THIS TIME-WCTM
[2019-10-15 12:20] VITALS: BP 104/54
--- NOTE | 2019-10-15 13:38 | NUR ---
CONTINUE TO FOLLOW, PT PLANS TO RETURN HOME WITH [facility]. CARRIE FROM [facility] CAME TO VISIT WITH PT. THEY WILL NEED CALL AND ORDERS FAXED TO THEM AT [place]. EXPLAINED INR MACHINE ISSUE TO PT AND INSTRUCTED HIM TO F/U WITH HIS PCP DR MCMULLEN. [facility] CALL AT [phone] FAX ORDERS TO [phone]
[2019-10-15 20:00] VITALS: BP 137/70
[2019-10-16 06:23] LABS: HEMATOCRIT 21.8 % (42.0-52.0); HEMOGLOBIN 7.7 gm/dL (14.0-18.0)
[2019-10-16 06:31] LABS: INR 1.6; PROTIME 16.2 Seconds (9.20-11.50)
[2019-10-16 07:45] VITALS: BP 107/62
--- NOTE | 2019-10-16 10:56 | NUR ---
ASSUMED CARE OF PT AT 0730. PT SITTING IN RECLINER WAITING FOR BREAKFAST. AT BEDSIDE. PT COMPLAINS OF PAIN TO LEFT HIP- TREATED WITH PRN NORCO WITH RELIEF. PT MED SURG STATUS. ON RA SAT 98%. DENIES ANY SHORTNESS OF BREATH. PT UP WITH 1 ASSIST AND WALKER TO BATHROOM. DRESSING TO LEFT HIP IS C/D/I. HGB NOTED TO DROP FROM 8.7 YESTERDAY TO 7.[address] GOLDEN HERE TO SEE PT. DISCHARGE HELD DUE TO DROP IN HGB. WILL WATCH TODAY AND POSSIBLE DISCHARGE HOME TOMORROW 10/17. PT GOAL FOR TODAY IS INCREASE ACTIVITY, UP TO CHAIR FOR MEALS AND MONITOR HGB. AM ASSESSMENT CHARTED. MEDICATIONS PER JAN. PT REPOSITIONS SELF WITH REMINDERS. HOURLY ROUNDING OBSERVED. BED IN LOW POSITION. CALL LIGHT WITHIN REACH. WILL CONTINUE PLAN OF CARE.
[2019-10-16 13:13] VITALS: BP 129/64
--- NOTE | 2019-10-16 16:00 | NUR ---
ASSUMED CARE OF PATIENT. ASSESSMENT REVIEWED, CONCUR NO CHANGES NOTED. UP IN CHAIR AT THIS TIME VISITING WITH FAMILY. DRESSING CDI TO L HIP, TIGH HIGH LINETTE HOSE REMAIN IN PLACE. LUNGS CTA, ROOM AIR - NO SIGN OF RESPIRATORY DISTRESS. REPORTING STATING TO HAVE PAIN AGAIN, WILL GIVE REPEAT PO PAIN MEDICATION TO ASSSIT WITH PAIN CONTROL. CALL LIGHT WITHIN REACH. WILL CONTINUE TO MONITOR.
[2019-10-16 20:15] VITALS: BP 123/54
[2019-10-17] VITALS: BP 128/68
--- NOTE | 2019-10-17 06:43 | NUR ---
PT SLEPT MOST OF SHIFT. ASSESSMENT DOCUMENTED. MEDS GIVEN PER E-MAR. PORT PATENT. PT REPORTED MINIMAL PAIN. REMAINED AT BEDSIDE. WILL CONTINUE WITH PLAN OF CARE.
[2019-10-17 09:08] VITALS: BP 129/70
[2019-10-17 09:39] LABS: HEMATOCRIT 22.8 % (42.0-52.0); HEMOGLOBIN 7.8 gm/dL (14.0-18.0)
[2019-10-17 09:46] LABS: INR 1.2; PROTIME 11.8 Seconds (9.20-11.50)
--- NOTE | 2019-10-17 13:34 | NUR ---
DC ORDERES RECIEVED. RIGHT CHEST PORT DEACCESSED PER PROTOCOL. PT. AND SPOUSE GIVEN DC INSTRUCTIONS, INCLUDING HOLDING BLOOD THINNERS X1 WEEK, VERBALIZED UNDERSTANDING. PT. LEFT IN WHEELCHAIR TO RETURN HOME IN PERSONAL VEHICLE, ALL BELONGINGS ACCOUNTED FOR.
== END 2019-10-17 14:20 | disposition home or self-care (01) | DRG 920 ==
LOC: M.ERS 21:40 → M.2W 10-13 00:38 → M.TBA-ER 10-13 00:38 → M.2W 10-13 01:40
PROVIDERS: Emergency Medicine; Internal Medicine; ADMIT Internal Medicine
DX: M96.840 Postprocedural hematoma of a musculoskeletal structure following a musculoskeletal system procedure (principal); E44.0 Moderate protein-calorie malnutrition; Z96.652 Presence of left artificial knee joint; I10 Essential (primary) hypertension; E11.9 Type 2 diabetes mellitus without complications; S80.12XA Contusion of left lower leg, initial encounter; Y83.8 Other surgical procedures as the cause of abnormal reaction of the patient, or of later complication, without mention of misadventure at the time of the procedure; Y82.8 Other medical devices associated with adverse incidents; Z96.643 Presence of artificial hip joint, bilateral; Z80.1 Family history of malignant neoplasm of trachea, bronchus and lung; Z85.038 Personal history of other malignant neoplasm of large intestine; Z85.05 Personal history of malignant neoplasm of liver; Z86.718 Personal history of other venous thrombosis and embolism; Z80.3 Family history of malignant neoplasm of breast; Z87.891 Personal history of nicotine dependence; Z79.01 Long term (current) use of anticoagulants; Z79.4 Long term (current) use of insulin; Z68.39 Body mass index [BMI] 39.0-39.9, adult; X58.XXXA Exposure to other specified factors, initial encounter; Y93.89 Activity, other specified; Y92.89 Other specified places as the place of occurrence of the external cause; Y99.8 Other external cause status

== ENCOUNTER 2020-02-21 16:46 | Emergency (ER) | payer OTHER ==
[~2020-02-21] VITALS: Ht 180.3 cm; Wt 111.1 kg
[2020-02-21] MEDS ORDERED: XULTOPHY 100 UNI3 ML SUBQ (17:00)
[2020-02-21 17:34] LABS: INR 1.3; PROTIME 13.5 Seconds (9.20-11.50)
[2020-02-21] MEDS ORDERED: VOLTAREN GEL 1100 G1 TOP (17:58)
[2020-02-21] MEDS ORDERED: FLEXERIL PO (17:58)
[2020-02-21 18:07] VITALS: BP 161/86
== END 2020-02-21 18:08 | disposition home or self-care (01) ==
LOC: M.ERS 16:46
PROVIDERS: Physician Assistant
DX: M54.5 Low back pain (principal); I10 Essential (primary) hypertension; E11.9 Type 2 diabetes mellitus without complications; Z85.038 Personal history of other malignant neoplasm of large intestine; Z85.05 Personal history of malignant neoplasm of liver; Z85.828 Personal history of other malignant neoplasm of skin; Z86.711 Personal history of pulmonary embolism; Z89.512 Acquired absence of left leg below knee; Z96.641 Presence of right artificial hip joint

== ENCOUNTER 2020-07-06 16:01 | Emergency (ER) | payer OTHER ==
[~2020-07-06] VITALS: Ht 180.3 cm; Wt 113.4 kg
[~2020-07-06 16:01] MED LIST changes: +FLEXERIL PO; +VOLTAREN GEL 1100 G1 TOP
[2020-07-06] MEDS ORDERED: VOLTAREN GEL 1100 G2 TOP (16:57)
[2020-07-06] MEDS ORDERED: FLEXERIL PO (16:57)
[2020-07-06 17:39] VITALS: BP 144/81
== END 2020-07-06 17:47 | disposition home or self-care (01) ==
LOC: M.ERS 16:01
DX: M54.5 Low back pain (principal); I10 Essential (primary) hypertension; E11.9 Type 2 diabetes mellitus without complications; Z86.711 Personal history of pulmonary embolism; Z85.828 Personal history of other malignant neoplasm of skin; Z85.038 Personal history of other malignant neoplasm of large intestine; Z85.05 Personal history of malignant neoplasm of liver

== ENCOUNTER → 2020-07-29 | Outpatient (CLI) | payer OTHER ==
[~2020-07-29] MED LIST changes: +PERCOCET 5-3251 EACH PO; +VOLTAREN GEL 1100 G2 TOP
== END ==
LOC: M.CT 13:05
PROVIDERS: ATTEND Physician Assistant
DX: S72.91XA Unspecified fracture of right femur, initial encounter for closed fracture (principal); Z96.641 Presence of right artificial hip joint; X58.XXXA Exposure to other specified factors, initial encounter; Y93.89 Activity, other specified; Y92.89 Other specified places as the place of occurrence of the external cause; Y99.8 Other external cause status

== ENCOUNTER 2020-07-31 10:40 | Emergency (ER) | payer OTHER ==
[~2020-07-31] VITALS: Ht 180.3 cm; Wt 113.4 kg
[~2020-07-31 10:40] MED LIST changes: -PERCOCET 5-3251 EACH PO
[2020-07-31 11:35] LABS: ABSOLUTE EOSINOPHILS 0.1 thou/uL (0.0-0.7); ABSOLUTE LYMPHOCYTES 0.3 thou/uL (0.8-5.3); ABSOLUTE MONOCYTES 0.4 thou/uL (0.0-1.2); ABSOLUTE NEUTROPHILS 4.6 thou/uL (1.6-8.1); BASOPHILS 0.8 %; EOSINOPHILS 1.4 %; HEMATOCRIT 36.3 % (42.0-52.0); HEMOGLOBIN 13.1 gm/dL (14.0-18.0); LYMPHOCYTES 6.3 %; MCH 32.9 pg (26.0-34.0); MCV 91.6 fL (80.0-100.0); MONOCYTES 7.4 %; MPV 7.2 fl. (7.2-11.1); NUCLEATED RBCS 0 /100WBC; PLATELET COUNT* 177 thou/uL (150-400); POLYS 84.1 %; RBC 3.97 mil/uL (4.50-6.00); RDW-CV 13.9 % (10.5-14.5); WBC 5.5 thou/uL (4.0-11.0)
[2020-07-31 11:45] LABS: CALCIUM 8.4 mg/dL (8.5-10.1); POTASSIUM 3.8 mmol/L (3.5-5.1)
[2020-07-31] MEDS ORDERED: PERCOCET 5-3251 EACH PO (11:46)
[2020-07-31 11:48] LABS: APTT 46.8 Seconds (25.0-31.3); INR 3.3; PROTIME 32.8 Seconds (9.20-11.50)
[2020-07-31 12:07] VITALS: BP 148/69
== END 2020-07-31 12:08 | disposition home or self-care (01) ==
LOC: M.ERS 10:40
PROVIDERS: Family Medicine
DX: S30.0XXA Contusion of lower back and pelvis, initial encounter (principal); I10 Essential (primary) hypertension; E11.9 Type 2 diabetes mellitus without complications; Z85.828 Personal history of other malignant neoplasm of skin; Z85.05 Personal history of malignant neoplasm of liver; Z85.038 Personal history of other malignant neoplasm of large intestine; Z86.711 Personal history of pulmonary embolism; W18.39XA Other fall on same level, initial encounter; Y93.89 Activity, other specified; Y92.89 Other specified places as the place of occurrence of the external cause; Y99.8 Other external cause status

== ENCOUNTER 2021-11-08 16:38 | Inpatient (IN) | payer OTHER ==
[~2021-11-08] VITALS: Ht 177.8 cm; Wt 118.0 kg
[~2021-11-08 16:38] MED LIST changes: -COUMADIN 5 MG TA5 M1 PO; +JANTOVEN6 MG PO; +PERCOCET 5-3251 EACH PO
[2021-11-08 16:51] VITALS: BP 162/95
[2021-11-08] MEDS ORDERED: METFORMIN HCL500 M3 PO (16:57)
[2021-11-08] MEDS ORDERED: JARDIANCE10 MG PO (16:58)
[2021-11-08 17:45] LABS: INFLUENZA A ANTIGEN Negative (Negative); INFLUENZA B ANTIGEN Negative (Negative)
[2021-11-08 17:56] LABS: HEMATOCRIT 43.3 % (42.0-52.0); HEMOGLOBIN 15.4 gm/dL (14.0-18.0); MCH 32.3 pg (26.0-34.0); MCHC 35.6 g/dL (28.0-37.0); MCV 90.7 fL (80.0-100.0); MPV 7.8 fl. (7.2-11.1); NUCLEATED RBCS 0 /100WBC; PLATELET COUNT* 145 thou/uL (150-400); RBC 4.77 mil/uL (4.50-6.00); RDW-CV 13.5 % (10.5-14.5); WBC 7.6 thou/uL (4.0-11.0)
[2021-11-08 18:00] LABS: CALCIUM 8.2 mg/dL (8.5-10.1); CREATININE 1.1 mg/dL (0.6-1.3); POTASSIUM 3.1 mmol/L (3.5-5.1)
[2021-11-08 18:04] LABS: ALBUMIN 2.9 g/dL (3.4-5.0); TOTAL BILIRUBIN 0.9 mg/dL (<0.1-1.0); TOTAL PROTEIN 6.8 g/dL (6.4-8.2)
[2021-11-08 18:25] LABS: ABSOLUTE LYMPHOCYTES 0.3 thou/uL (0.8-5.3); ABSOLUTE MONOCYTES 0.3 thou/uL (0.0-1.2)
[2021-11-08 18:26] LABS: PLATELET ESTIMATE ADEQUATE
[2021-11-08 18:41] LABS: INR 1.2; PROTIME 11.9 Seconds (9.20-11.50)
[2021-11-08 19:24] LABS: URINE BLOOD 1+ (Negative); URINE CLARITY CLEAR; URINE COLOR YELLOW; URINE GLUCOSE-RANDOM 2+ (Negative); URINE KETONES 2+ (Negative); URINE LEUKOCYTES NEGATIVE (Negative); URINE NITRITE NEGATIVE (Negative); URINE PROTEIN 1+ (Negative); URINE SPECIFIC GRAVITY >= 1.030 (1.005-1.030); URINE UROBILINOGEN 0.2 E.U./dl (0.2-1.0)
[2021-11-08 19:27] LABS: ICTOTEST (BILI CONFIRMATORY) Negative (Negative); URINE BILIRUBIN 1+ (Negative)
[2021-11-08 19:41] LABS: CRYSTALS None Seen /LPF (None Seen); HYALINE CASTS 0-3 Few /LPF (None Seen); MUCUS None Seen strn/LPF (None Seen); SQUAMOUS NONE SEEN /LPF (0-3)
[2021-11-08 19:42] LABS: BACTERIA 1-9 Few /HPF (None Seen); URINE RBC 0-2 Rare /HPF (0-2); URINE WBC None Seen /HPF (0-5)
[2021-11-08 23:30] VITALS: BP 163/93
[2021-11-08 23:35] VITALS: BP 146/83
[2021-11-09 05:35] LABS: ABSOLUTE LYMPHOCYTES 0.3 thou/uL (0.8-5.3); ABSOLUTE MONOCYTES 0.3 thou/uL (0.0-1.2); ABSOLUTE NEUTROPHILS 5.3 thou/uL (1.6-8.1); BASOPHILS 0.1 %; HEMATOCRIT 41.7 % (42.0-52.0); HEMOGLOBIN 14.6 gm/dL (14.0-18.0); LYMPHOCYTES 4.7 %; MCH 31.9 pg (26.0-34.0); MCHC 35.1 g/dL (28.0-37.0); MCV 90.8 fL (80.0-100.0); MONOCYTES 5.3 %; MPV 7.9 fl. (7.2-11.1); NUCLEATED RBCS 0 /100WBC; PLATELET COUNT* 140 thou/uL (150-400); POLYS 89.9 %; RBC 4.59 mil/uL (4.50-6.00); RDW-CV 13.4 % (10.5-14.5); WBC 5.9 thou/uL (4.0-11.0)
[2021-11-09 05:57] LABS: CALCIUM 8.2 mg/dL (8.5-10.1); POTASSIUM 3.4 mmol/L (3.5-5.1)
[2021-11-09 08:00] VITALS: BP 159/76
--- NOTE | 2021-11-09 09:28 | NUR ---
Pt is admitted for Covid 19 Pneumonia on 11/08/21. Called pt's - Beth at: [phone] to complete assessment. initially very defensive about phone call and as to why this dicharge airport planner was asking questions. Pt lives with in a ranch style home with 2 steps to enter. Pt was working part time between 2 jobs before being admitted to the hospital. Pt was independent in ADL's and Ambulation. Pt has a hx of HH with having a hx of Cancer and Knee Replacement but was unable to recall the name of the agency. Pt has no hx of SNF. was very defensive at the thought of pt needing SNF and insists pt will return home but is open to home health if needed. Pt has a hx of [employer] with CPAP (but hasn't used his CPAP in quite awhile as it is part of the recall). Pt fills his prescriptions at [facility] and see's his oncologist every 3 months. CM following for discharge needs.
--- NOTE | 2021-11-09 10:19 | EKG ---
[place] [address] ELECTROCARDIOGRAM REPORT Name: FRANK BOWER Room: [address] ADM IN ..#: [id number] Admission: 11/08/21 Attend Phys: Jenaro Robles, Discharge: Date of : 62 Date of Service: 11/08/21 1722 Report #: [id number] THIS REPORT FOR: //name// [facility] ED Test Date: 2021-11-08 Test Time: 17:22:13 Pat Name: FRANK BOWER Department: Room: [facility] Gender: M Clinic Lpn: LUPE : 1960 Requested By: Branden Littlejohn Order Number: [id number] MD: Andrea Rodriguez Measurements Intervals [place] Rate: 122 P: 32 CA: 152 QRS: 145 QRSD: 108 T: -10 QT: 338 QTc: 482 Interpretive Statements Sinus tachycardia with consecutive pac's Left posterior fascicular block Abnormal R-wave progression, late transition Compared to ECG 10/12/2019 22:19:30 Left posterior fascicular block now present Electronically Signed On 11-09-2021 10:19:38 HAT BAND ATTACHER by Andrea Rodriguez [email or web address] <ELECTRONICALLY SIGNED> By: Andrea Rodriguez MD, FACC 11/09/21 1019 21 21 Andrea Rodriguez MD, [facility] /EPI
[2021-11-09 12:00] VITALS: BP 149/88
[2021-11-09 17:10] VITALS: BP 133/76
--- NOTE | 2021-11-09 19:10 | NUR ---
PT SALINE LOCK IN HIS RIGHT AC SPACE CLOTTED OFF SO ACCESSED RIGHT CHEST PORT POSITIVE BLOOD RETURNED. FLUSHED WELL. VSS AFEBRILE. PT IS FLIP INTO SINUS TACH. EKG SONE SHOWED ST WILL CONTINUE TO MONITOR PLAN OF CARE.
[2021-11-09 20:20] VITALS: BP 139/68
[2021-11-09 23:03] LABS: BE 0.1 mmol/L (-2 to +3); PCO2 36.5 mmHg (35.0-45.0); pH 7.435 (7.340-7.450)
[2021-11-09 23:05] LABS: PO2 49.1 mmHg (75.0-100.0)
[2021-11-09 23:46] VITALS: BP 149/86; BP 151/95
[2021-11-10 04:00] VITALS: BP 137/79
[2021-11-10 06:02] LABS: HEMOGLOBIN 15.2 gm/dL (14.0-18.0); MCH 32.5 pg (26.0-34.0); MCHC 35.3 g/dL (28.0-37.0); MCV 92.1 fL (80.0-100.0); RBC 4.67 mil/uL (4.50-6.00); RDW-CV 13.1 % (10.5-14.5); WBC 8.9 thou/uL (4.0-11.0)
[2021-11-10 06:51] LABS: CALCIUM 8.7 mg/dL (8.5-10.1); POTASSIUM 3.3 mmol/L (3.5-5.1)
[2021-11-10 08:00] VITALS: BP 148/87
--- NOTE | 2021-11-10 08:38 | NUR ---
PATIENT HAS SLEPT OFF AND ON DURING THE NIGHT. PATIENTS OXYGENATION WAS IN THE 80'S AT THE BEGINNING OF THE SHIFT. RESPIRATORY NOTIFIED AND BREATHING TREATMENT GIVEN AND PATIENT PLACED ON HIGH FLOW NASAL CANNULA AT 15L. PATIENT STILL HAVING LOW OXYGENATION LEVEL IN THE MID 80'S. DRWhitley NOTIFIED AND NEW ORDERS GIVEN. BLOOD GAS DRAWN AND PATIENT PLACED ON BIPAP PER ORDERS. PATIENT VERY AGITATED ABOUT USING THE BIPAP AT TIMES AND YELLING AT NURSING STAFF AND RESPIRATORY THERAPIST. PATIENT EDUCATED ON IMPORTANCE OF USING BIPAP. PATIENT REFUSING TO WEAR BIPAP AT TIMES AND OXYGEN LEVELS DOWN TO 65%. RESPIRATORY NOTIFIED AND PATIENT RE-EDUCATED ON THE IMPORTANCE OF USING BIPAP AND KEEPING IT ON. PATIENT PLACED BACK ON BIPAP. PATIENTS OXYGENATION LEVELS HAVE BEEN GOOD SINCE STAYING ON BIPAP. PATIENT ALSO EDUCATED ON TURNING FROM SIDE TO SIDE AND TRYING TO LAY PRONE MUCH POSSIBLE. PLASMA GIVEN DURING SHIFT. CRITICAL BLOOD GASES CALLED INTO DRWhitley MEDICATIONS GIVEN ORDERED AND CHARTE. PATIENT INSTRUCTED TO USE CALL LIGHT WHEN NEEDING ASSISTANCE. HOURLY ROUNDS MADE. WILL CONTINUE WITH PLAN OF CARE AND NURSING TO MONITOR.
--- NOTE | 2021-11-10 10:01 | NUR ---
Nutrition: consult reason "unknown." Spoke w/ pt's RN this am who reported wt of 108 lb is incorrect, wt is in 200's. Wt in 2019 was 243 lb. Hx of colon cancer noted. Nsg reported pt did not eat this am but ate 100% yesterday. Pt requiring BIPAP this am. Albumin 2.9, K 3.3. Dexamethasone and other meds reviweed. Assess at low nutrition risk at this time. Rec offer supplements PRN for meal intake <50%.
[2021-11-10 12:00] VITALS: BP 122/77
--- NOTE | 2021-11-10 12:20 | EKG ---
[place] [address] ELECTROCARDIOGRAM REPORT Name: FRANK BOWER Room: [address] IN ..#: [id number] Admission: 11/08/21 Attend Phys: Jenaro Robles, Discharge: Date of : 62 Date of Service: 11/09/21 162 Report #: [id number] THIS REPORT FOR: //name// [facility] Test Date: 2021-11-09 Test Time: 16:21:47 Pat Name: FRANK BOWER Department: Room: [address] Gender: M Picture Engraver: RAGHAVENDRA : 1960 Requested By: Christina Enrique Order Number: [id number] Angela MD: Benson East Measurements Intervals [place] Rate: 121 P: 39 ID: 162 QRS: 135 QRSD: 100 T: -1 QT: 335 QTc: 476 Interpretive Statements Sinus tachycardia with premature atrial contractions left posterior fascicular block Inferior infarct, old, possible Abnormal R-wave progression, late transition Borderline T wave abnormalities Borderline prolonged QT interval Compared to ECG 11/08/2021 17:22:13 T-wave abnormality now present Electronically Signed On 11-10-2021 12:19:57 STUDY DIRECTOR by Benson East [email or web address] <ELECTRONICALLY SIGNED> By: Benson East MD, FACC 11/10/21 1219 162 162 Benson East MD, FAC /EPI
[2021-11-10 12:21] LABS: BE 1.3 mmol/L (-2 to +3); PCO2 39.1 mmHg (35.0-45.0); PO2 106.9 mmHg (75.0-100.0); pH 7.432 (7.340-7.450)
[2021-11-10 16:00] VITALS: BP 158/87
--- NOTE | 2021-11-10 19:35 | NUR ---
PT ON BYPAP 85% sating well, 98 to 99%. pt has recieved his antibiotics at scheduled times. pt blood sugars have been running high due to the steriods HE HAS BEEN GETTING. PT CHANGED OVER TO HIGH FLOW TUBING ABOUT LUNCH TIME. PT SAT IN RECLINER ALL DAY AND ATE WELL LUNCH IN SUPPER. WILL CONTINUE TO MONITOR PLAN OF CARE.
[2021-11-10 20:00] VITALS: BP 160/89
[2021-11-11 02:36] VITALS: BP 152/72
[2021-11-11 05:48] VITALS: BP 160/94
[2021-11-11 07:58] LABS: HEMATOCRIT 42.4 % (42.0-52.0); HEMOGLOBIN 14.5 gm/dL (14.0-18.0); MCH 31.7 pg (26.0-34.0); MCHC 34.2 g/dL (28.0-37.0); MCV 92.7 fL (80.0-100.0); MPV 7.8 fl. (7.2-11.1); RBC 4.58 mil/uL (4.50-6.00); RDW-CV 13.5 % (10.5-14.5); WBC 10.1 thou/uL (4.0-11.0)
[2021-11-11 08:00] VITALS: BP 168/90
[2021-11-11 08:07] LABS: CALCIUM 8.2 mg/dL (8.5-10.1); POTASSIUM 3.7 mmol/L (3.5-5.1)
--- NOTE | 2021-11-11 11:36 | NUR ---
PLAN OF CARE: PT CONTINUES TO HAVE INCREASED OXYGEN NEEDS. PT REMAINS ON 15L O2 AND 85% FIO2. PLAN FOR PT TO POSSIBLY NEED HOME O2 AND HH AT D/C PENDING PT BEING MEDICALLY STABLE, R.T. TESTING, AND PT/OT EVALS. CM WILL REMAIN AVAILABLE TO ASSIST AND FOLLOW NEEDED.
[2021-11-11 11:45] VITALS: BP 175/91
[2021-11-11 16:00] VITALS: BP 148/87
--- NOTE | 2021-11-11 18:20 | NUR ---
PT REMAINS IN ISOLATION FOR COVID. VSS AFEBRILE. PT HAS BEEN SR BUT THEN FLIPPED INTO AFIB FOR ABOUT 30MINUTES THEN FLIPPED BACK TO NSR. PT RIGHT UPPER CHEST PORT FLUSHES WELL AND IS POSITIVE FOR BLOOD RETURN. VSS AFEBRILE. WILL CONTINUE TO MONITOR PLAN OF CARE.
[2021-11-11 20:00] VITALS: BP 146/82
[2021-11-12] VITALS: BP 141/86
[2021-11-12 03:06] LABS: GLYCOHEMOGLOBIN (HGB A1C) 7.8 % (4.8-5.6)
--- NOTE | 2021-11-12 04:27 | NUR ---
RESTLESS EVENING BUT SLEPT WELL TONIGHT. TOLERATING BIPAP ON. VOIDING PER URINAL WITHOUT DIFFICULTY. TELEMETRY ON SHOWING SR. NO COMPLAINTS VOICED.
[2021-11-12 05:23] VITALS: BP 157/95
[2021-11-12 09:30] VITALS: BP 158/86
[2021-11-12 13:14] VITALS: BP 136/90
[2021-11-12 17:14] VITALS: BP 146/83
[2021-11-12 19:45] VITALS: BP 154/90
[2021-11-13 00:50] VITALS: BP 143/93
[2021-11-13 04:39] VITALS: BP 168/105
--- NOTE | 2021-11-13 05:39 | NUR ---
RECEIVED REPORT FROM OSEI RDZ. PT TRANSFERRED TO RM 111. PT A&OX4. VSS. THIS NURSE AGREES WITH PREVIOUS MANAGER CORPORATE STRATEGY. PT TRACING SR ON TELE. PT UPSTANDBY. PT DENIES PAIN. PT ON HHFNC 40L/100%/BIPAP 85% AT HS. CALL LIGHT WITHIN REACH.
--- NOTE | 2021-11-13 07:20 | NUR ---
CHANGE OF SHIFT REPORT GIVEN PATIENT SEEN AT BEDSIDE, IN BED ASLEEP ASSUMED PATIENT CARE
[2021-11-13 08:00] VITALS: BP 164/98
[2021-11-13 12:57] VITALS: BP 144/83
[2021-11-13 14:25] LABS: INR 1.1; PROTIME 11.1 Seconds (9.20-11.50)
[2021-11-13 16:54] VITALS: BP 122/82
[2021-11-13 20:00] VITALS: BP 143/88
[2021-11-14 02:02] VITALS: BP 133/82
[2021-11-14 04:45] LABS: HEMATOCRIT 45.1 % (42.0-52.0); HEMOGLOBIN 15.5 gm/dL (14.0-18.0); MCH 31.1 pg (26.0-34.0); MCHC 34.4 g/dL (28.0-37.0); MCV 90.5 fL (80.0-100.0); MPV 7.8 fl. (7.2-11.1); RBC 4.98 mil/uL (4.50-6.00); RDW-CV 13.7 % (10.5-14.5); WBC 14.4 thou/uL (4.0-11.0)
[2021-11-14 04:53] LABS: INR 1.1; PROTIME 11.5 Seconds (9.20-11.50)
[2021-11-14 04:57] LABS: ALBUMIN 2.6 g/dL (3.4-5.0); CALCIUM 8.2 mg/dL (8.5-10.1); CREATININE 1.1 mg/dL (0.6-1.3); MAGNESIUM 1.9 mg/dL (1.8-2.4); POTASSIUM 3.6 mmol/L (3.5-5.1); TOTAL BILIRUBIN 0.8 mg/dL (<0.1-1.0); TOTAL PROTEIN 6.4 g/dL (6.4-8.2)
[2021-11-14 06:12] VITALS: BP 149/97
--- NOTE | 2021-11-14 07:48 | NUR ---
ASSUMED CARE OF PT AFTER REPORT AT 1930. PT A&OX4. VSS. PHYSCIAL ASSESSMENT COMPLETED AND CHARTED. PT ON HHFNC/BIPAP. PT TRACING SR ON TELE. PT ABLE TO SLEEP WELL ON BED. CALL LIGHT WITHIN REACH.
[2021-11-14 08:00] VITALS: BP 124/79
[2021-11-14 12:07] VITALS: BP 118/72
--- NOTE | 2021-11-14 14:35 | NUR ---
CM FOLLOWUP PT NOT MED CLEAR. PT WITH HIGH O2 NEEDS. PT CURRENTLY ON 40L. CM TO FOLLOW FOR DC PLANNING NEEDS.
[2021-11-14 16:34] VITALS: BP 123/72
[2021-11-14 20:00] VITALS: BP 137/77
[2021-11-15 02:29] VITALS: BP 128/75
[2021-11-15 05:59] LABS: HEMATOCRIT 41.8 % (42.0-52.0); HEMOGLOBIN 14.6 gm/dL (14.0-18.0); MCH 31.6 pg (26.0-34.0); MCHC 34.9 g/dL (28.0-37.0); MCV 90.3 fL (80.0-100.0); MPV 8.1 fl. (7.2-11.1); NUCLEATED RBCS 0 /100WBC; PLATELET COUNT* 250 thou/uL (150-400); RBC 4.63 mil/uL (4.50-6.00); RDW-CV 13.3 % (10.5-14.5); WBC 12.7 thou/uL (4.0-11.0)
[2021-11-15 06:30] LABS: INR 1.4; PROTIME 14.3 Seconds (9.20-11.50)
[2021-11-15 06:32] VITALS: BP 126/78
[2021-11-15 06:35] LABS: ALBUMIN 2.3 g/dL (3.4-5.0); CALCIUM 8.4 mg/dL (8.5-10.1); CREATININE 1.1 mg/dL (0.6-1.3); MAGNESIUM 2.4 mg/dL (1.8-2.4); POTASSIUM 4.3 mmol/L (3.5-5.1); TOTAL BILIRUBIN 0.6 mg/dL (<0.1-1.0)
[2021-11-15 07:04] LABS: ABSOLUTE BASOPHILS 0.1 thou/uL (0.0-0.2); ABSOLUTE LYMPHOCYTES 0.5 thou/uL (0.8-5.3); ABSOLUTE MONOCYTES 0.3 thou/uL (0.0-1.2); ABSOLUTE NEUTROPHILS 11.8 thou/uL (1.6-8.1); PLATELET ESTIMATE ADEQUATE
--- NOTE | 2021-11-15 07:20 | NUR ---
ASSUMED CARE OF PT AFTER REPORT AT 1930. PT A&OX4. VSS. PHYSICAL ASSESSMENT COMPLETED AND CHARTED. PT TRACING SR ON TELE. PT ON HFNC 15L/BIPAP 100% AT HS. PT DENIES ANY PAIN. CALL LIGHT WITHIN REACH.
[2021-11-15 08:00] VITALS: BP 119/75
[2021-11-15 12:25] VITALS: BP 116/70
--- NOTE | 2021-11-15 13:16 | NUR ---
CM FOLLOWUP PT NOT YET MED CLEAR. PT ON 15L O2. CM TO FOLLOW PT IS ANTICIPATED TO NEED O2 AND HH UPON DC.
[2021-11-15 16:00] VITALS: BP 121/68
[2021-11-15 20:00] VITALS: BP 127/82
[2021-11-16] VITALS (7 sets, daily range): BP systolic 99–133; BP diastolic 66–77
[2021-11-16 03:33] LABS: HEMATOCRIT 42.9 % (42.0-52.0); HEMOGLOBIN 15.1 gm/dL (14.0-18.0); MCH 31.3 pg (26.0-34.0); MCHC 35.1 g/dL (28.0-37.0); MCV 89.1 fL (80.0-100.0); MPV 7.9 fl. (7.2-11.1); RBC 4.81 mil/uL (4.50-6.00); RDW-CV 13.6 % (10.5-14.5); WBC 16.1 thou/uL (4.0-11.0)
[2021-11-16 03:45] LABS: PROTIME 20.3 Seconds (9.20-11.50)
[2021-11-16 03:48] LABS: ALBUMIN 2.3 g/dL (3.4-5.0); CALCIUM 7.9 mg/dL (8.5-10.1); CREATININE 0.9 mg/dL (0.6-1.3); MAGNESIUM 2.1 mg/dL (1.8-2.4); POTASSIUM 3.9 mmol/L (3.5-5.1); TOTAL BILIRUBIN 0.5 mg/dL (<0.1-1.0); TOTAL PROTEIN 5.8 g/dL (6.4-8.2)
--- NOTE | 2021-11-16 07:04 | NUR ---
ASSUMED CARE OF PT AFTER REPORT AT 1930. PT A&OX4. VSS. PHYSICAL ASSESSMENT COMPLETED AND CHARTED. PT ON O2 AT 5L NC. PT TRACING AFIB/BBB ON TELE. PT UPADLIB TO BSC. PT DENIES PAIN. CALL LIGHT WITHIN REACH.
--- NOTE | 2021-11-16 07:08 | NUR ---
ASSUMED CARE OF PT AFTER REPORT AT 1930. PT A&OX4. VSS. PHYSICAL ASSESSMENT COMPLETED AND CHARTED. PT ON O2 AT 15L HFNC/BIPAP AT HS. PT TRACING SR/PAC ON TELE. PT UPADLIB TO BSC. PT DENIES PAIN. PT ABLE TO SLEEP WELL ON RECLINER. CALL LIGHT WITHIN REACH.
[2021-11-16 15:21] LABS: BE 0.6 mmol/L (-2 to +3); PCO2 33.5 mmHg (35.0-45.0); pH 7.464 (7.340-7.450)
[2021-11-16 15:23] LABS: PO2 52.2 mmHg (75.0-100.0)
--- NOTE | 2021-11-16 15:48 | NUR ---
CM FOLLOWUP PT NOT MED CLEAR AND ON 15L O2. CM TO FOLLOW PT MAY NEED HH AND HOME O2 UPON DC.
[2021-11-16 16:13] LABS: CALCIUM 8.3 mg/dL (8.5-10.1); CREATININE 1.1 mg/dL (0.6-1.3)
[2021-11-17 04:03] VITALS: BP 100/71
--- NOTE | 2021-11-17 04:06 | NUR ---
ASSUMED CARE OF PT AFTER REPORT AT 1930. PT A&OX4. VSS. PHYSICAL ASSESSMENT COMPLETED AND CHARTED. PT ON FNC 100%/40L. PT TRACING SR/PAC ON TELE. PT UPADLIB TO BSC. PT DENIES ANY PAIN. CALL LIGHT WITHIN REACH.
[2021-11-17 04:39] LABS: HEMATOCRIT 44.9 % (42.0-52.0); HEMOGLOBIN 15.5 gm/dL (14.0-18.0); MCH 31.6 pg (26.0-34.0); MCHC 34.6 g/dL (28.0-37.0); MCV 91.5 fL (80.0-100.0); MPV 8.5 fl. (7.2-11.1); RBC 4.91 mil/uL (4.50-6.00); RDW-CV 13.5 % (10.5-14.5); WBC 17.2 thou/uL (4.0-11.0)
[2021-11-17 04:46] LABS: INR 2.9; PROTIME 28.2 Seconds (9.20-11.50)
[2021-11-17 05:14] LABS: ALBUMIN 2.5 g/dL (3.4-5.0); CALCIUM 8.4 mg/dL (8.5-10.1); CREATININE 0.9 mg/dL (0.6-1.3); MAGNESIUM 2.3 mg/dL (1.8-2.4); POTASSIUM 3.7 mmol/L (3.5-5.1); TOTAL BILIRUBIN 0.6 mg/dL (<0.1-1.0)
[2021-11-17 09:00] VITALS: BP 113/80
[2021-11-17 12:00] VITALS: BP 99/73
--- NOTE | 2021-11-17 14:09 | NUR ---
CM FOLLOWUP PT NOT MED CLEAR. PT ON 40L O2. CM TO FOLLOW PT MAY NEED HH AND O2 UPON MED CLEARANCE FOR DC.
[2021-11-17 16:00] VITALS: BP 116/76
[2021-11-17 20:00] VITALS: BP 112/77
[2021-11-18 00:09] VITALS: BP 142/99
[2021-11-18 04:00] VITALS: BP 114/78
--- NOTE | 2021-11-18 04:21 | NUR ---
ASSUMED CARE OF PT AFTER REPORT AT 1930. PT A&OX4. VSS. PHYSICAL ASSESMENT COMPLETED AND CHARTED. PT ON FNC. PT TRACING SR/ST ON TELE. PT UPADLIB TO BSC. PT DENIES PAIN. CALL LIGHT WITHIN REACH.
[2021-11-18 07:42] LABS: ABSOLUTE LYMPHOCYTES 0.4 thou/uL (0.8-5.3); ABSOLUTE MONOCYTES 0.6 thou/uL (0.0-1.2); BASOPHILS 0.2 %; HEMATOCRIT 48.1 % (42.0-52.0); HEMOGLOBIN 16.5 gm/dL (14.0-18.0); LYMPHOCYTES 1.9 %; MCH 31.1 pg (26.0-34.0); MCHC 34.4 g/dL (28.0-37.0); MCV 90.4 fL (80.0-100.0); MPV 8.6 fl. (7.2-11.1); NUCLEATED RBCS 0 /100WBC; PLATELET COUNT* 301 thou/uL (150-400); POLYS 94.9 %; RBC 5.32 mil/uL (4.50-6.00); RDW-CV 13.9 % (10.5-14.5)
[2021-11-18 08:31] LABS: INR 3.5; PROTIME 34.1 Seconds (9.20-11.50)
[2021-11-18 09:00] VITALS: BP 123/61
[2021-11-18 09:40] LABS: ALBUMIN 2.5 g/dL (3.4-5.0); CALCIUM 8.2 mg/dL (8.5-10.1); MAGNESIUM 2.4 mg/dL (1.8-2.4); TOTAL BILIRUBIN 0.6 mg/dL (<0.1-1.0)
[2021-11-18 12:04] VITALS: BP 120/77
[2021-11-18 16:00] VITALS: BP 122/77
[2021-11-18 20:30] VITALS: BP 128/79
[2021-11-19] VITALS: BP 129/73
[2021-11-19 04:00] VITALS: BP 135/83
--- NOTE | 2021-11-19 06:32 | NUR ---
PATIENT IN CHAIR ALL NIGHT, UP AD TAL TO BSC, ALERT AND ORIENTED. IV RIGHT UPPER ARM SINGLE LUMEN PORT, FLUSHES WELL, RECEIVED MEDS SCHEDULED. LASIX GIVEN THIS MORNING. DIMINISHED LUNG SOUNDS.
[2021-11-19 08:00] VITALS: BP 128/89
[2021-11-19 13:16] LABS: HEMOGLOBIN 16.7 gm/dL (14.0-18.0); MCH 31.4 pg (26.0-34.0); MCHC 34.1 g/dL (28.0-37.0); MPV 8.4 fl. (7.2-11.1); RBC 5.32 mil/uL (4.50-6.00); RDW-CV 13.6 % (10.5-14.5); WBC 23.8 thou/uL (4.0-11.0)
[2021-11-19 13:25] LABS: INR 3.8; PROTIME 37.1 Seconds (9.20-11.50)
[2021-11-19 13:29] LABS: ALBUMIN 2.9 g/dL (3.4-5.0); CALCIUM 8.1 mg/dL (8.5-10.1); CREATININE 1.2 mg/dL (0.6-1.3); MAGNESIUM 2.4 mg/dL (1.8-2.4); TOTAL BILIRUBIN 0.8 mg/dL (<0.1-1.0); TOTAL PROTEIN 6.3 g/dL (6.4-8.2)
[2021-11-19 14:29] VITALS: BP 115/74
[2021-11-19 17:30] VITALS: BP 118/79
--- NOTE | 2021-11-19 17:30 | NUR ---
PT AO X4 SITTING IN RECLINER FOR ASSESSMENT. LUNGS CTA/DIM WITH PRODUCTIVE COUGH. PT IS GRUMPY AND NEGATIVE ABOUT EACH QUESTIONS ASKED. WHEN ASKED WHAT IS WRONG PT HE JUST SHUTS DOWN AND MUMBLES. PT HAS 2+ EDEMA AND WHEN I ASKED IF HE WANTED TO ELEVATE HIS FEET HE SAID "NO, IT MAKES ME ANXIOUS "BUT WOULDNT ELABORATE ON WHY. PT IS NSR ON TELEMETRY. UP INDEPENDENT TO BSC. CALL LIGHT IN REACH BUT PT DOES NOT CALL OUT MUCH.
[2021-11-19 22:15] VITALS: BP 99/78
[2021-11-20] VITALS (56 sets, daily range): BP systolic 58–151; BP diastolic 36–123
[2021-11-20 05:23] LABS: BE -0.4 mmol/L (-2 to +3); PCO2 34.6 mmHg (35.0-45.0); pH 7.438 (7.340-7.450)
[2021-11-20 05:26] LABS: PO2 56.4 mmHg (75.0-100.0)
[2021-11-20 08:37] LABS: BE -5.5 mmol/L (-2 to +3); PCO2 40.8 mmHg (35.0-45.0); pH 7.314 (7.340-7.450)
[2021-11-20 08:38] LABS: HEMATOCRIT 48.7 % (42.0-52.0); MCH 30.9 pg (26.0-34.0); MCHC 32.8 g/dL (28.0-37.0); MCV 94.3 fL (80.0-100.0); MPV 9.2 fl. (7.2-11.1); RBC 5.17 mil/uL (4.50-6.00); RDW-CV 13.6 % (10.5-14.5)
[2021-11-20 08:43] LABS: WBC 39.9 thou/uL (4.0-11.0)
[2021-11-20 08:49] LABS: PROTIME 38.8 Seconds (9.20-11.50)
[2021-11-20 09:03] LABS: CALCIUM 7.8 mg/dL (8.5-10.1); MAGNESIUM 2.5 mg/dL (1.8-2.4)
--- NOTE | 2021-11-20 09:29 | NUR ---
ASSUMED CARE OF PATIENT AT 1900. PATIENT WAS GIVEN NIGHT MEDS AT ABOUT 2215. PATIENT WAS NOT COMPLAINING OF ANY PAIN AT THIS TIME. AT ABOUT 2320 RT WAS IN PATIENT ROOM CAME OUT STATED HE WAS COMPLAINING OF PAIN ON RIGHT SIDE. TYLENOL WAS GIVEN AT THIS TIME. PATIENT INSTRUCTED TO CALL IF IT DIDNT HELP. AT ABOUT 0200 PATIENT CALLED OUT STATING PAIN WAS A 9. DR STEWART WAS NOTIFIED OF INCREASED PAIN OF RIGHT WALL CHEST PAIN TORADOL WAS ORDERED NO OTHER ORDERS AT THIS TIME EKG HAD BEEN DONE AT 0206. TORADOL WAS GIVEN AT ABOUT 0300. AT 0320 PATIENT STATED HIS PAIN HAD COME DOWN TO A 5 BUT HE FELT LIKE HE WAS SHORT OF AIR. RT WAS CALLED TO GIVE HIM A PRN BREATHING TREATMENT. RT TRIED TO GIVE HIM A PRN TREATMENT BUT PATIENT HR STARTED TO INCREASE TO 130'S SO TREATMENT WAS STOPPED. THIS NURSE PAGED THE ANSWERING SERVICE FOR DR CHAVEZ AT ABOUT 0350. DR CHAVEZ DID NOT RETURN PHONE CALL. WELDER OPERATOR GAVE ME HIS DIRECT NUMBER AND IT WENT TO [facility]. DR STEWART WAS THEN CALLED AT 0419 AND RETURNED PHONE CALL AT 0423. ORDERS WERE GIVEN FOR STAT CHEST XRAY, ABG'S AND ATIVAN 1MG. AT ABOUT 0445 PATIENT SATS STARTED TO DROP TO UPPER 70'S-80 HR WAS 140'S TO 150'S. RAPID RESPONSE WAS CALLED. CHEST XRAY SHOWED THAT THE PNEUMO HAD EXPANDANDED. WELDER OPERATOR CALLED DR GALLARDO AND DR VAUGHN. DR GALLARDO CAME OVER TO THE FLOOR AT ABOUT 0530. DR VAUGHN ARRIVED AT ABOUT 0550 AND WANTED THE PATIENT INTUBATED BEFORE HE PLACED THE CHEST TUBE. PATIENT WAS INTUBATED AT [address] VAUGHN THEN INSERTED THE CHEST TUBE A FEW MINUTES LATER. PATIENT SATS DID NOT IMPROVE MUCH AFTER CHEST TUBE SATS WERE ABOUT 70'S. NG TUBE AND PULIDO WERE PLACED. AT ABOUT 0630 PATIENT BLOOD PRESSURE STARTED TO DROP TO 60'S OVER 30S LEVO DRIP WAS STARTED. SEDATION MEDS WERE GIVEN ORDERED SEE JAN. BP AND SATS IMPROVED WITH SEDATION MEDS AND LEVO DRIP. REPORT WAS GIVEN TO ONCOMING NURSE AT ABOUT 0715. WILL CONTINUE TO MONITOR.
--- NOTE | 2021-11-20 11:30 | NUR ---
anesthesia placing central line left ij. call x-ray for cxr.
--- NOTE | 2021-11-20 12:09 | NUR ---
CXR DONE FOR LINE PLACEMENT.
[2021-11-20 14:21] LABS: ABSOLUTE BASOPHILS 0.4 thou/uL (0.0-0.2); ABSOLUTE MONOCYTES 1.7 thou/uL (0.0-1.2); ABSOLUTE NEUTROPHILS 42.1 thou/uL (1.6-8.1); HEMATOCRIT 46.8 % (42.0-52.0); HEMOGLOBIN 15.5 gm/dL (14.0-18.0); MCH 31.3 pg (26.0-34.0); MCHC 33.1 g/dL (28.0-37.0); MCV 94.5 fL (80.0-100.0); MONOCYTES 3.8 %; MPV 9.2 fl. (7.2-11.1); NUCLEATED RBCS 0 /100WBC; PLATELET COUNT* 383 thou/uL (150-400); POLYS 94.2 %; RBC 4.95 mil/uL (4.50-6.00); RDW-CV 13.6 % (10.5-14.5)
[2021-11-20 14:24] LABS: ABSOLUTE LYMPHOCYTES 0.4 thou/uL (0.8-5.3)
[2021-11-20 14:26] LABS: WBC 44.7 thou/uL (4.0-11.0)
[2021-11-20 14:38] LABS: ALBUMIN 2.6 g/dL (3.4-5.0); CALCIUM 7.8 mg/dL (8.5-10.1); CREATININE 2.7 mg/dL (0.6-1.3); POTASSIUM 4.8 mmol/L (3.5-5.1); TOTAL BILIRUBIN 0.9 mg/dL (<0.1-1.0); TOTAL PROTEIN 5.8 g/dL (6.4-8.2)
[2021-11-20 14:52] LABS: BE -6.5 mmol/L (-2 to +3); PCO2 35.6 mmHg (35.0-45.0); pH 7.332 (7.340-7.450)
[2021-11-20 14:57] LABS: PO2 53.6 mmHg (75.0-100.0)
[2021-11-20 19:02] LABS: PCO2 35.2 mmHg (35.0-45.0)
[2021-11-20 19:07] LABS: PO2 50.4 mmHg (75.0-100.0)
--- NOTE | 2021-11-20 19:44 | NUR ---
AT 1240 DC PROPOFOL DUE TO HYPOTENSION. VERBAL ORDER BY DR CHAVEZ.
[2021-11-20 21:11] LABS: HEMATOCRIT 41.5 % (42.0-52.0); MCHC 33.7 g/dL (28.0-37.0); MCV 91.8 fL (80.0-100.0); NUCLEATED RBCS 0 /100WBC; PLATELET COUNT* 314 thou/uL (150-400); RBC 4.52 mil/uL (4.50-6.00); RDW-CV 13.7 % (10.5-14.5)
[2021-11-20 21:16] LABS: WBC 41.9 thou/uL (4.0-11.0)
[2021-11-20 21:24] LABS: ALBUMIN 2.2 g/dL (3.4-5.0); CALCIUM 7.4 mg/dL (8.5-10.1); CREATININE 2.4 mg/dL (0.6-1.3); POTASSIUM 4.2 mmol/L (3.5-5.1); TOTAL BILIRUBIN 0.9 mg/dL (<0.1-1.0); TOTAL PROTEIN 5.3 g/dL (6.4-8.2)
[2021-11-20 21:37] LABS: INR 1.3
[2021-11-20 22:22] LABS: ABSOLUTE LYMPHOCYTES 0.8 thou/uL (0.8-5.3); ABSOLUTE MONOCYTES 2.5 thou/uL (0.0-1.2); ABSOLUTE NEUTROPHILS 38.5 thou/uL (1.6-8.1); PLATELET ESTIMATE ADEQUATE
[2021-11-20 22:53] LABS: URINE BILIRUBIN NEGATIVE (Negative); URINE BLOOD 3+ (Negative); URINE CLARITY CLEAR; URINE COLOR YELLOW; URINE GLUCOSE-RANDOM 1+ (Negative); URINE KETONES NEGATIVE (Negative); URINE LEUKOCYTES-REFLEX NEGATIVE (Negative); URINE NITRITE-REFLEX NEGATIVE (Negative); URINE PROTEIN 1+ (Negative); URINE SPECIFIC GRAVITY >= 1.030 (1.005-1.030); URINE UROBILINOGEN 0.2 E.U./dl (0.2-1.0)
[2021-11-20 23:29] LABS: HYALINE CASTS 0-3 Few /LPF (None Seen); MUCUS 0-3 Light strn/LPF (None Seen); SQUAMOUS 0-3 Few /LPF (0-3)
[2021-11-20 23:30] LABS: FINE GRANULAR CASTS 0-3 Few /LPF (None Seen)
[2021-11-20 23:32] LABS: URINE WBC-REFLEX 0-5 Rare /HPF (0-5)
[2021-11-20 23:33] LABS: URINE RBC 3-10 Few /HPF (0-2)
[2021-11-20 23:34] LABS: URIC ACID CRYSTALS 4-10 Moderate /LPF (None Seen)
[2021-11-21] VITALS (59 sets, daily range): BP systolic 71–141; BP diastolic 48–79
[2021-11-21 04:33] LABS: ABSOLUTE LYMPHOCYTES 0.6 thou/uL (0.8-5.3); ABSOLUTE NEUTROPHILS 46.2 thou/uL (1.6-8.1); BASOPHILS 0.1 %; EOSINOPHILS 0.1 %; HEMATOCRIT 40.6 % (42.0-52.0); LYMPHOCYTES 1.2 %; MCH 31.1 pg (26.0-34.0); MCHC 34.4 g/dL (28.0-37.0); MCV 90.3 fL (80.0-100.0); MONOCYTES 2.4 %; MPV 8.2 fl. (7.2-11.1); NUCLEATED RBCS 0 /100WBC; PLATELET COUNT* 277 thou/uL (150-400); POLYS 96.2 %; RDW-CV 13.8 % (10.5-14.5)
[2021-11-21 05:12] LABS: ABSOLUTE MONOCYTES 1.2 thou/uL (0.0-1.2)
[2021-11-21 05:41] LABS: ALBUMIN 2.2 g/dL (3.4-5.0); CALCIUM 7.8 mg/dL (8.5-10.1); CREATININE 1.8 mg/dL (0.6-1.3); MAGNESIUM 2.7 mg/dL (1.8-2.4); POTASSIUM 3.9 mmol/L (3.5-5.1); TOTAL BILIRUBIN 0.8 mg/dL (<0.1-1.0); TOTAL PROTEIN 5.6 g/dL (6.4-8.2)
[2021-11-21 05:43] LABS: PHOSPHORUS* 4.5 mg/dL (2.5-4.9)
--- NOTE | 2021-11-21 06:51 | NUR ---
ASSUMED PT CARE AT 191. PT ON VENT AND SEDATED REQUIRING BILAT SOFT WRIST RESTRAINTS. RIGHT CHEST TUBE IN PLACE. NO AIR LEAK PRESENT. VITAL SIGNS STABLE WITH DRIPS AT START OF SHIFT. O2 SAT 86-89%. AT 0045, PT O2 SAT DROPPED TO 83%. RT CALLED TO ROOM AND UNABLE TO BRING UP O2 SAT ABOVE 84%. DR. CHAVEZ PAGED AND ORDERS RECEIVED.PT'S ,JOSE BOWER, NOTIFIED OF PT CONDITION. NIMBEX STARTED, BILAT RESTRAINTS REMOVED. O2 SAT IMPROVED AFTER NIMBEX GTT. AT 0405. AT 0300, PT HR INCREASED TO 120-130'S. TYLENOL GIVEN FOR TEMP 100.3. AT 0350, CUTTING MACHINE FIXER CALLED FOR HR 200'S. EKG PERFORMED, RETURNING OFFICER AT BEDSIDE. DR. GOLDEN NOTIFIED, NEW ORDERS RECEIVED. IV METROPOLOL ADMINISTERED ORDERED AND EFFECTIVE. INSULIN GTT STOPPED AT 0552 WITH BS OF 66. Q2H REPOSITIONING COMPLETED. 1:1 WITH PATIENT THIS SHIFT FOR ICU MONITORING. AT BEDSIDE.
--- NOTE | 2021-11-21 08:49 | OP ---
[address] [address] OPERATIVE REPORT Name: SATHISHFRANK FRANCO Room: [address] IN M.R.#: [id number] Admission: 11/08/21 Attend Phys: Jenaro Robles MD Discharge: Date of : 62 Report #: [id number] THIS REPORT FOR: cc: Andrea Huddleston MD, [place] S. MD James, Kelly M. MD ~ DATE OF SURGERY: 11/20/2021 PREOPERATIVE DIAGNOSES: Respiratory failure, right pleural effusion. POSTOPERATIVE DIAGNOSIS: Right hemothorax. OPERATIVE PROCEDURE: Placement of right chest tube thoracostomy, 28-Honduran. ANESTHESIA: 1% lidocaine. DESCRIPTION OF PROCEDURE: The patient was just rapidly intubated for respiratory failure, was paralyzed and intubated and the right chest was carefully prepped and draped in a sterile fashion. A time-out was taken. Infiltration in the right anterior axillary line parallel to the nipple, injection with 5 mL of lidocaine. A #11 scalpel blade made a transverse incision of approximately 3 cm. Finger dissection down to the anterior ribcage was applied to the skin with a trocar. A 28-Honduran chest tube I inserted over the anterior portion of that incision into the pleural cavity with a patel of free blood, which was clamped and then connected to a Pleur-Evac. The chest tube was sutured with 2-0 nylon sutures surrounded with Vaseline gauze, a regular gauze and tape and secured and a chest x-ray pending. ESTIMATED BLOOD LOSS: 20 mL. COUNTS: Sponge, instrument counts correct. Chest x-ray pending. <ELECTRONICALLY SIGNED> By: Katherine Paulino MD 11/21/21 0849 0514 [id number] Paulino MD /nt
[2021-11-21 08:51] LABS: APTT 29.9 Seconds (25.0-31.3); INR 1.3; PROTIME 12.8 Seconds (9.20-11.50)
--- NOTE | 2021-11-21 10:50 | EKG ---
[place] [address] ELECTROCARDIOGRAM REPORT Name: FRANK BOWER Room: [address] ADM IN .R.#: [id number] Admission: 11/08/21 Attend Phys: Jenaro Robles, Discharge: Date of : 62 Date of Service: 11/20/21 0206 Report #: [id number] THIS REPORT FOR: //name// [facility] Test Date: 2021-11-20 Test Time: 02:06:49 Pat Name: FRANK BOWER Department: Room: [address] Gender: M Flavorer: BXIONG : 1960 Requested By: Jenaro Robles Order Number: [id number] Angela MD: Andrea Rodriguez Measurements Intervals [place] Rate: 106 P: 77 UT: 144 QRS: -69 QRSD: 103 T: 31 QT: 370 QTc: 492 Interpretive Statements Sinus tachycardia Atrial premature complexes Inferior infarct, old Compared to ECG 11/09/2021 16:21:47 Myocardial infarct finding still present Electronically Signed On 11-21-2021 10:50:18 OIL HEATER OPERATOR by Andrea Rodriguez [email or web address] <ELECTRONICALLY SIGNED> By: Andrea Rodriguez MD, FAC 11/21/21 1050 0206 Andrea Rodriguez MD, [facility] /EPI
--- NOTE | 2021-11-21 11:02 | EKG ---
[place] [address] ELECTROCARDIOGRAM REPORT Name: FRANK BOWER Room: [address] ADM IN .R.#: [id number] Admission: 11/08/21 Attend Phys: Jenaro Robles, Discharge: Date of : 62 Date of Service: 11/21/21 0229 Report #: [id number] THIS REPORT FOR: //name// [facility] Test Date: 2021-11-21 Test Time: 02:29:30 Pat Name: FRANK BOWER Department: Room: [address] Gender: M Mold Closer Helper: SUZIE : 1960 Requested By: Jenaro Robles Order Number: [id number] Reading MD: Andrea Rodriguez Measurements Intervals [place] Rate: 129 P: 33 RI: 108 QRS: -30 QRSD: 90 T: 49 QT: 343 QTc: 503 Interpretive Statements sinus tachcardia with pac's Left axis deviation Borderline low voltage, extremity leads Abnormal R-wave progression, late transition Prolonged QT interval Baseline wander in lead(s) V1 Compared to ECG 11/20/2021 02:06:49 Prolonged QT interval now present rate has increased Electronically Signed On 11-21-2021 11:02:43 SEWER AND INSPECTOR by Andrea Rodriguez [email or web address] <ELECTRONICALLY SIGNED> By: Andrea Rodriguez MD, [facility] 11/21/21 1102 8 8 Andrea Rodriguez MD, [facility] /EPI
--- NOTE | 2021-11-21 11:07 | EKG ---
[place] [address] ELECTROCARDIOGRAM REPORT Name: FRANK BOWER Room: [address] ADM IN .R.#: [id number] Admission: 11/08/21 Attend Phys: Jenaro Robles, Discharge: Date of : 62 Date of Service: 11/21/21 0354 Report #: [id number] THIS REPORT FOR: //name// [facility] Test Date: 2021-11-21 Test Time: 03:54:37 Pat Name: FRANK BOWER Department: Room: [address] Gender: M Paper Final Inspector: DT : 1960 Requested By: Jenaro Robles Order Number: [id number] Reading MD: Andrea Rodriguez Measurements Intervals [place] Rate: 204 P: 22 DE: 128 QRS: -66 QRSD: 91 T: -59 QT: 256 QTc: 472 Interpretive Statements atrial fibrillation Markedly posterior QRS axis Borderline low voltage, extremity leads Repolarization abnormality, prob rate related Compared to ECG 11/20/2021 02:06:49 Sinus tachycardia no longer present Electronically Signed On 11-21-2021 11:06:56 BILINGUAL PATIENT SUPPORT CASEWORKER by Andrea Rodriguez [email or web address] <ELECTRONICALLY SIGNED> By: Andrea Rodriguez MD, FACC 11/21/21 1106 0354 0354 Andrea Rodriguez MD, FAC /EPI
--- NOTE | 2021-11-21 11:09 | EKG ---
[place] [address] ELECTROCARDIOGRAM REPORT Name: FRANK BOWER Room: [address] ADM IN .R.#: [id number] Admission: 11/08/21 Attend Phys: Jenaro Robles, Discharge: Date of : 62 Date of Service: 11/21/21 0403 Report #: [id number] THIS REPORT FOR: //name// [facility] Test Date: 2021-11-21 Test Time: 04:03:10 Pat Name: FRANK BOWER Department: Room: [address] Gender: M Equity Holder: DT : 1960 Requested By: Jenaro Robles Order Number: [id number] Reading MD: Andrea Rodriguez Measurements Intervals [place] Rate: 136 P: 23 NM: 111 QRS: -26 QRSD: 91 T: 20 QT: 284 QTc: 428 Interpretive Statements Sinus tachycardia with pac's and consecutive pac's Borderline left axis deviation Low voltage, extremity leads nonspecific st segment changes Abnormal R-wave progression, late transition Compared to ECG 11/21/2021 03:54:37 atrial fibrillaion no longer present Electronically Signed On 11-21-2021 11:08:42 KEY FILER by Andrea Rodriguez [email or web address] <ELECTRONICALLY SIGNED> By: Andrea Rodriguez MD, [facility] 11/21/21 1108 2 2 Andrea Rodriguez MD, [facility] /EPI
[2021-11-21 13:31] LABS: BE -0.3 mmol/L (-2 to +3); PO2 70.4 mmHg (75.0-100.0)
[2021-11-21 13:36] LABS: PCO2 74.8 mmHg (35.0-45.0); pH 7.212 (7.340-7.450)
--- NOTE | 2021-11-21 14:52 | CON ---
[address] [address] CONSULTATION Name: FRANK BOWER Room: [address] ADM IN M.R.#: [id number] Admission: 11/08/21 Attend Phys: Jenaro Robles MD Discharge: Date of : 62 Report #: [id number] THIS REPORT FOR: cc: Andrea Huddleston MD, [place] S. MD Blick, David R. MD [facility] ~ cc: Andrea Huddleston MD DATE OF CONSULTATION: 11/21/2021 CARDIOLOGY CONSULTATION HISTORY OF PRESENT ILLNESS: The patient is a 61-year-old white male who I was asked to see in the hospital today after he was noted to be a rapid narrow complex tachycardia. The history is obtained from the chart. The patient is currently intubated. He presented a week ago with cough and shortness of breath. He tested positive for COVID-19 at [facility]. He had received the vaccine and booster. He has a history of pulmonary embolus for which he takes warfarin and has IVC filter in place. He was admitted to [facility] and had to be intubated. Last night, he went into a narrow complex tachycardia. Cardiology consultation requested. PAST MEDICAL HISTORY: He has history of colon cancer, has a Port-A-Cath in place. He has a history of liver metastasis. He is diabetic, has a history of pulmonary embolus, DVT. PAST SURGICAL HISTORY: He has had hip surgery, knee surgery. MEDICATIONS: On admission included insulin, Lasix, Lipitor, aspirin, warfarin, Jardiance, enalapril, amlodipine. ALLERGIES: He has no known drug allergies. SOCIAL HISTORY: He has been a smoker. REVIEW OF SYSTEMS: Cannot be obtained. PHYSICAL EXAMINATION: GENERAL: Reveals an obese, middle-aged male, lying in bed, on the ventilator. VITAL SIGNS: He had a blood pressure 120/70, pulse is 100, he is afebrile. HEENT: He was anicteric. Conjunctivae pink. Mucous membranes moist. NECK: Veins do not appear distended. CHEST: Clear to auscultation. HEART: Regular rate and rhythm. ABDOMEN: [place] [address] CONSULTATION Name: FRANK BOWER Room: [address]#: [id number] Admission: 11/08/21 Attend Phys: Jenaro Robles MD Discharge: Date of : 62 Report #: [id number] EXTREMITIES: Had no pitting edema. SKIN: Warm and dry. NEUROLOGIC: Nonfocal. LABORATORY DATA: His ECG on admission showed a sinus rhythm. LABORATORY DATA: His ECG last night showed what appeared to represent rapid atrial fibrillation with nonspecific ST segment changes. Workup since his admission included a chest x-ray this morning that showed bilateral interstitial infiltrates. His lab work included a BUN 59, creatinine 1.8, it has been as high as 2.7. Albumin 2.2. High sensitivity troponin 17. BNP 35. His hemoglobin 14.0. His COVID antigen stat test was positive. IMPRESSION AND RECOMMENDATIONS: 1. Atrial fibrillation. Currently, the patient is back in sinus rhythm. Recommend digoxin to slow the ventricular response rate. 2. COVID-19 pneumonia. The patient on ventilator. 3. Hemothorax. Chest tube in place. 4. Diabetes. 5. Hypertension. Currently on pressors. 6. History of colon cancer with liver metastasis. 7. History of pulmonary embolism, deep venous thrombosis. The patient has IVC filter in place. 8. Acute kidney injury. <ELECTRONICALLY SIGNED> By: Andrea Rodriguez MD, FACC 11/21/21 1452 0813 [id number] Rodriguez MD, FACC /nt
--- NOTE | 2021-11-21 16:24 | NUR ---
ICU Rounds - pt transferred to ICU today due to increased oxygen needs and is now on a vent and sedated at: Fio2 - 100% with a peep of 8. Pt lives with his . CM to continue to follow for discharge planning.
[2021-11-21 21:45] LABS: CALCIUM 7.5 mg/dL (8.5-10.1); CREATININE 1.8 mg/dL (0.6-1.3); MAGNESIUM 2.7 mg/dL (1.8-2.4); POTASSIUM 4.3 mmol/L (3.5-5.1)
[2021-11-22] VITALS (41 sets, daily range): BP systolic 83–142; BP diastolic 55–84
[2021-11-22 06:02] LABS: BASOPHILS 0.1 %; LYMPHOCYTES 1.4 %; MCH 31.5 pg (26.0-34.0); MCHC 33.5 g/dL (28.0-37.0); MCV 94.1 fL (80.0-100.0); MONOCYTES 2.5 %; MPV 9.2 fl. (7.2-11.1); NUCLEATED RBCS 0 /100WBC; RBC 3.08 mil/uL (4.50-6.00); RDW-CV 13.5 % (10.5-14.5)
[2021-11-22 06:10] LABS: ALBUMIN 1.7 g/dL (3.4-5.0); CALCIUM 6.5 mg/dL (8.5-10.1); CREATININE 1.6 mg/dL (0.6-1.3); MAGNESIUM 2.4 mg/dL (1.8-2.4); POTASSIUM 3.9 mmol/L (3.5-5.1); TOTAL BILIRUBIN 0.5 mg/dL (<0.1-1.0); TOTAL PROTEIN 4.3 g/dL (6.4-8.2)
[2021-11-22 06:14] LABS: INR 1.3; PROTIME 13.4 Seconds (9.20-11.50)
[2021-11-22 06:19] LABS: PHOSPHORUS* 2.5 mg/dL (2.5-4.9)
[2021-11-22 07:12] LABS: ABSOLUTE LYMPHOCYTES 0.3 thou/uL (0.8-5.3); ABSOLUTE MONOCYTES 0.5 thou/uL (0.0-1.2); ABSOLUTE NEUTROPHILS 17.7 thou/uL (1.6-8.1); HEMOGLOBIN 9.7 gm/dL (14.0-18.0); PLATELET COUNT* 117 thou/uL (150-400); WBC 18.4 thou/uL (4.0-11.0)
[2021-11-22 09:40] LABS: BE 4.4 mmol/L (-2 to +3); PCO2 48.7 mmHg (35.0-45.0); pH 7.407 (7.340-7.450)
[2021-11-22 09:43] LABS: PO2 55.6 mmHg (75.0-100.0)
[2021-11-22 10:15] LABS: HEMATOCRIT 35.1 % (42.0-52.0); MCH 31.3 pg (26.0-34.0); MCHC 33.2 g/dL (28.0-37.0); MCV 94.1 fL (80.0-100.0); MPV 9.1 fl. (7.2-11.1); RBC 3.72 mil/uL (4.50-6.00); RDW-CV 13.8 % (10.5-14.5); WBC 21.1 thou/uL (4.0-11.0)
[2021-11-22 10:19] LABS: HEMOGLOBIN 11.7 gm/dL (14.0-18.0)
--- NOTE | 2021-11-22 19:45 | NUR ---
At or around 1630, pt's heartrate now up in the 140s and maintaining. This RN contacted Dr. Mccallum and Dr. Rodriguez to alert them to the change in pt's HR. Dr. Rodriguez at the pt's bedside, pt tracing Afib/Aflutter on the monitor. Per verbal order, Dr. Rodriguez authorized for the 1800 Digoxin dose to be given early. The Digoxin had little to no effect on the pt's HR, HR still showing 149-150bpm on the monitor. This RN text paged Dr. Rodriguez to alert him that the pt's HR is maintaining above 145bpm. Per Dr. Rodriguez, give pt a NOW dose of 2.5mg of Metoprolol, then continue to give 2.5mg of Metoprolol every 6 hours, hold if the pt's systolic BP is less than 100. Versed gtt turned up to 9mg/hr. Pt's HR has now decreased to the 110s-120s. Will continue to monitor.
[2021-11-22 23:02] LABS: CALCIUM 7.2 mg/dL (8.5-10.1); CREATININE 2.4 mg/dL (0.6-1.3); MAGNESIUM 2.8 mg/dL (1.8-2.4)
[2021-11-22 23:04] LABS: POTASSIUM 5.4 mmol/L (3.5-5.1)
[2021-11-23] VITALS (23 sets, daily range): BP systolic 75–102; BP diastolic 52–67
[2021-11-23 04:50] LABS: ABSOLUTE LYMPHOCYTES 0.4 thou/uL (0.8-5.3); ABSOLUTE MONOCYTES 0.4 thou/uL (0.0-1.2); ABSOLUTE NEUTROPHILS 9.1 thou/uL (1.6-8.1); BASOPHILS 0.3 %; EOSINOPHILS 0.1 %; HEMATOCRIT 29.4 % (42.0-52.0); HEMOGLOBIN 10.1 gm/dL (14.0-18.0); LYMPHOCYTES 3.6 %; MCH 32.7 pg (26.0-34.0); MCHC 34.3 g/dL (28.0-37.0); MCV 95.3 fL (80.0-100.0); MONOCYTES 3.8 %; MPV 9.1 fl. (7.2-11.1); NUCLEATED RBCS 2 /100WBC; PLATELET COUNT* 121 thou/uL (150-400); POLYS 92.2 %; RBC 3.08 mil/uL (4.50-6.00); RDW-CV 13.7 % (10.5-14.5); WBC 9.8 thou/uL (4.0-11.0)
[2021-11-23 05:02] LABS: INR 1.6; PROTIME 15.9 Seconds (9.20-11.50)
[2021-11-23 05:19] LABS: PHOSPHORUS* 2.3 mg/dL (2.5-4.9)
[2021-11-23 05:28] LABS: ALBUMIN 2.2 g/dL (3.4-5.0); CALCIUM 6.9 mg/dL (8.5-10.1); CREATININE 2.5 mg/dL (0.6-1.3); MAGNESIUM 2.8 mg/dL (1.8-2.4); POTASSIUM 4.7 mmol/L (3.5-5.1)
[2021-11-23 09:08] LABS: BE -0.6 mmol/L (-2 to +3); PCO2 46.6 mmHg (35.0-45.0); pH 7.353 (7.340-7.450)
--- NOTE | 2021-11-23 11:02 | CON ---
[address] [address] CONSULTATION Name: SATHISHFRANK GAMEZ Room: [address] ADM IN M.R.#: [id number] Admission: 11/08/21 Attend Phys: Jenaro Robles MD Discharge: Date of : 62 Report #: [id number] THIS REPORT FOR: cc: Andrea Huddleston MD, [place] S. MD Arakelov, Alexandr V. MD ~ DATE OF CONSULTATION: 11/21/2021 REASON FOR CONSULTATION: Acute kidney injury. HISTORY OF PRESENT ILLNESS: The patient is a 61-year-old man who was originally admitted to the hospital on 11/08 and was diagnosed with COVID pneumonia, acutely deteriorated yesterday, developed pneumothorax, chest tube had to be placed, got intubated and was transferred to intensive care unit. Currently, he is intubated and chest tube is in place, receiving treatment for his COVID. His creatinine actually improved down to 1.8 this morning from 2.7 yesterday. His potassium was 4.8 yesterday. This morning, potassium is 3.9 and he has good urine output. Urine output was 1250 mL over the last 24 hours. MEDICAL HISTORY: Significant for: 1. Hypertension. 2. History of pulmonary embolism. 3. History of colon cancer. 4. History of liver cancer. 5. Diabetes mellitus type 2. 6. History of DVT. MEDICATIONS: Reviewed. REVIEW OF SYSTEMS: Unobtainable due to his status, he is intubated and sedated. PHYSICAL EXAMINATION: GENERAL: He is in intensive care unit. Chest tube is in place. LUNGS: Coarse breath sounds. VITAL SIGNS: Reviewed. ASSESSMENT: 1. Acute kidney injury due to COVID infection. Renal function actually improving. 2. COVID-19 infection with respiratory failure and pneumothorax. 3. Diabetes mellitus type 2. 4. History of hypertension. PLAN: Continue current treatment. Discussed the case with Dr. Perkins and Dr. Fishman and ICU nurse. Follow very closely with input, [place] [address] CONSULTATION Name: FRANK BOWER Room: [address] IN [facility]#: [id number] Admission: 11/08/21 Attend Phys: Jenaro Robles MD Discharge: Date of : 62 Report #: [id number] Thank you very much. <ELECTRONICALLY SIGNED> By: Ashok Vieyra MD 11/23/21 1102 1056 [id number] c Vieyra MD /nt
[2021-11-24] VITALS (7 sets, daily range): BP systolic 63–143; BP diastolic 51–90
--- NOTE | 2021-11-24 03:52 | NUR ---
ASSUMED CARE AT 1900H, ON VENT AT 100% AND ONLY AT 88%. SEDATED WITH VERSED AND FENTANYL, TITRATED. ON ELISSA DRIP AND TITRATED. BP KEPT ON DROPPING, HIMS AWARE WITH ORDER MADE AND CARRIED OUT. MAX DOSE AT ELISAS AND LEVO AT .5MIC. EVERYTIME DOPAMIN DRIP STARTED, PT BECAME TACHYCARDIC. CONTINUE MONITORING AND TOWARDS GOALS.
[2021-11-24 05:41] LABS: URINE BILIRUBIN NEGATIVE (Negative); URINE BLOOD 3+ (Negative); URINE CLARITY CLEAR; URINE COLOR YELLOW; URINE GLUCOSE-RANDOM NEGATIVE (Negative); URINE KETONES NEGATIVE (Negative); URINE LEUKOCYTES-REFLEX NEGATIVE (Negative); URINE NITRITE-REFLEX NEGATIVE (Negative); URINE PROTEIN TRACE (Negative); URINE SPECIFIC GRAVITY 1.025 (1.005-1.030); URINE UROBILINOGEN 0.2 E.U./dl (0.2-1.0)
[2021-11-24 05:53] LABS: HYALINE CASTS 0-3 Few /LPF (None Seen); SQUAMOUS 0-3 Few /LPF (0-3)
[2021-11-24 05:54] LABS: CRYSTALS None Seen /LPF (None Seen); URINE WBC-REFLEX 0-5 Rare /HPF (0-5); YEAST-REFLEX Present (None Seen)
[2021-11-24 05:57] LABS: ABSOLUTE LYMPHOCYTES 0.2 thou/uL (0.8-5.3); ABSOLUTE MONOCYTES 0.7 thou/uL (0.0-1.2); BASOPHILS 0.1 %; HEMATOCRIT 33.8 % (42.0-52.0); HEMOGLOBIN 10.8 gm/dL (14.0-18.0); LYMPHOCYTES 1.3 %; MCH 31.8 pg (26.0-34.0); MCV 99.3 fL (80.0-100.0); MONOCYTES 4.1 %; MPV 9.6 fl. (7.2-11.1); NUCLEATED RBCS 2 /100WBC; PLATELET COUNT* 109 thou/uL (150-400); POLYS 94.5 %; RDW-CV 14.3 % (10.5-14.5); WBC 15.9 thou/uL (4.0-11.0)
[2021-11-24 06:16] LABS: ALBUMIN 2.1 g/dL (3.4-5.0); CALCIUM 6.5 mg/dL (8.5-10.1); MAGNESIUM 3.1 mg/dL (1.8-2.4); TOTAL BILIRUBIN 4.1 mg/dL (<0.1-1.0); TOTAL PROTEIN 4.9 g/dL (6.4-8.2)
[2021-11-24 06:18] LABS: CREATININE 4.7 mg/dL (0.6-1.3)
[2021-11-24 06:19] LABS: BE 1.4 mmol/L (-2 to +3); PCO2 47.2 mmHg (35.0-45.0); PO2 68.1 mmHg (75.0-100.0); pH 7.378 (7.340-7.450)
[2021-11-24 06:20] LABS: POTASSIUM 6.9 mmol/L (3.5-5.1)
[2021-11-24 06:39] LABS: INR 1.8; PROTIME 18.4 Seconds (9.20-11.50)
[2021-11-24 08:52] LABS: PHOSPHORUS* 8.4 mg/dL (2.5-4.9)
--- NOTE | 2021-11-24 11:08 | NUR ---
0705: This RN was obtaining report from night RN, Pipo when I noticed that the pt's BP was 60s/50s and his SpO2 was also dropping as his HR was maintaining up in the 120s. Pt already maxed out on the sedation gtts, pressors, and ventilator settings. Pt's code status was no CPR, no defibrillation, only medications as the interventions. 0715: Pt's was called and told to come up to the hospital. Dr. Mccallum was also alerted to pt's condition. Pt's is en route to the hospital. 0730: Levophed gtt bag changed, pt's BP continuing to drop, now maintaining in the 50s/40s, and maxed out on Neosyn, Levophed, and Dopamine gtts. 0735: Dr. Mccallum at the pt's bedside. 0743: Code called, 1mg of Epi pushed via verbal order from Dr. Mccallum. 0743: 1mg of Epi pushed via verbal order from Dr. Mccallum in attempt to preserve pt for 's arrival per request. 0745: 1mg of Epi pushed via Dr. Mccallum's order. 0748: 1mg of Epi pushed, last administration per Dr. Mccallum's order. 0750: pt no longer has a pulse, BP, or breaths. Time of 0750, Dr. Mccallum at the bedside to pronounce. 0755: Pt's arrived and is at the bedside.
--- NOTE | 2021-11-24 11:21 | NUR ---
DR STEWART AT BEDSIDE AND INSTRUCTED TO GIVEN THE FOLLOWING 0743 ePINEPHRINE 1MG IVP 0743 EPINEPHRINE 1MG IVP 0745 EPINEPHRINE 1MG IVP 0748 EPINEPHRINE 1MG IVP PRONOUNCED PER DR STEWART AT 0749
== END 2021-11-24 07:48 | DRG 871 ==
LOC: M.ERS 16:38 → M.2W 18:57 → M.TBA-ER 18:57 → M.2W 23:35 → M.ORTHSURG 11-12 22:35 → M.ICU 11-21 08:15
PROVIDERS: Internal Medicine; Internal Medicine Cardiovascular Disease; Internal Medicine Critical Care Medicine; Internal Medicine Nephrology; Physician Assistant; ADMIT Internal Medicine; ATTEND Internal Medicine
PROC: XW033E5 Introduction of Remdesivir Anti-infective into Peripheral Vein, Percutaneous Approach, New Technology Group 5 (ICD-10-PCS; principal; 2021-11-09)
PROC: XW13325 Transfusion of Convalescent Plasma (Nonautologous) into Peripheral Vein, Percutaneous Approach, New Technology Group 5 (ICD-10-PCS; principal; 2021-11-09)
PROC: 5A0935A Assistance with Respiratory Ventilation, Less than 24 Consecutive Hours, High Flow/Velocity Cannula (ICD-10-PCS; principal; 2021-11-09)
PROC: 5A09357 Assistance with Respiratory Ventilation, Less than 24 Consecutive Hours, Continuous Positive Airway Pressure (ICD-10-PCS; 2021-11-10)
PROC: 5A0935A Assistance with Respiratory Ventilation, Less than 24 Consecutive Hours, High Flow/Velocity Cannula (ICD-10-PCS; 2021-11-10)
PROC: 5A09357 Assistance with Respiratory Ventilation, Less than 24 Consecutive Hours, Continuous Positive Airway Pressure (ICD-10-PCS; 2021-11-11)
PROC: 5A0935A Assistance with Respiratory Ventilation, Less than 24 Consecutive Hours, High Flow/Velocity Cannula (ICD-10-PCS; 2021-11-11)
PROC: 5A0935A Assistance with Respiratory Ventilation, Less than 24 Consecutive Hours, High Flow/Velocity Cannula (ICD-10-PCS; 2021-11-12)
PROC: 5A09357 Assistance with Respiratory Ventilation, Less than 24 Consecutive Hours, Continuous Positive Airway Pressure (ICD-10-PCS; 2021-11-12)
PROC: 5A09357 Assistance with Respiratory Ventilation, Less than 24 Consecutive Hours, Continuous Positive Airway Pressure (ICD-10-PCS; 2021-11-13)
PROC: 5A0935A Assistance with Respiratory Ventilation, Less than 24 Consecutive Hours, High Flow/Velocity Cannula (ICD-10-PCS; 2021-11-13)
PROC: 5A0935A Assistance with Respiratory Ventilation, Less than 24 Consecutive Hours, High Flow/Velocity Cannula (ICD-10-PCS; 2021-11-14)
PROC: 5A09357 Assistance with Respiratory Ventilation, Less than 24 Consecutive Hours, Continuous Positive Airway Pressure (ICD-10-PCS; 2021-11-14)
PROC: 5A09357 Assistance with Respiratory Ventilation, Less than 24 Consecutive Hours, Continuous Positive Airway Pressure (ICD-10-PCS; 2021-11-15)
PROC: 5A0935A Assistance with Respiratory Ventilation, Less than 24 Consecutive Hours, High Flow/Velocity Cannula (ICD-10-PCS; 2021-11-15)
PROC: 5A0935A Assistance with Respiratory Ventilation, Less than 24 Consecutive Hours, High Flow/Velocity Cannula (ICD-10-PCS; 2021-11-16)
PROC: 5A0935A Assistance with Respiratory Ventilation, Less than 24 Consecutive Hours, High Flow/Velocity Cannula (ICD-10-PCS; 2021-11-17)
PROC: 5A0945A Assistance with Respiratory Ventilation, 24-96 Consecutive Hours, High Flow/Velocity Cannula (ICD-10-PCS; 2021-11-18)
PROC: 0BH17EZ Insertion of Endotracheal Airway into Trachea, Via Natural or Artificial Opening (ICD-10-PCS; 2021-11-20)
PROC: 0W9900Z Drainage of Right Pleural Cavity with Drainage Device, Open Approach (ICD-10-PCS; 2021-11-20)
PROC: 5A1945Z Respiratory Ventilation, 24-96 Consecutive Hours (ICD-10-PCS; 2021-11-20)
DX: A41.9 Sepsis, unspecified organism (principal); U07.1 COVID-19; J80 Acute respiratory distress syndrome; J12.82 Pneumonia due to coronavirus disease 2019; N17.0 Acute kidney failure with tubular necrosis; K72.00 Acute and subacute hepatic failure without coma; J94.2 Hemothorax; J93.9 Pneumothorax, unspecified; Z96.651 Presence of right artificial knee joint; I48.91 Unspecified atrial fibrillation; E11.65 Type 2 diabetes mellitus with hyperglycemia; J98.2 Interstitial emphysema; E11.22 Type 2 diabetes mellitus with diabetic chronic kidney disease; I12.9 Hypertensive chronic kidney disease with stage 1 through stage 4 chronic kidney disease, or unspecified chronic kidney disease; N18.9 Chronic kidney disease, unspecified; D64.9 Anemia, unspecified; I95.9 Hypotension, unspecified; R74.01 Elevation of levels of liver transaminase levels; Z85.05 Personal history of malignant neoplasm of liver; Z86.711 Personal history of pulmonary embolism; Z85.038 Personal history of other malignant neoplasm of large intestine; Z86.718 Personal history of other venous thrombosis and embolism; Z95.828 Presence of other vascular implants and grafts; Z79.82 Long term (current) use of aspirin; Z79.899 Other long term (current) drug therapy